=== PATIENT | female | born 1985 | race Caucasian/White ===

== ENCOUNTER 2021-03-13 10:03 | Emergency (ER) | payer MEDICARE, MEDICAID, SELFPAY ==
[2021-03-13 10:12] VITALS: BP 149/101; PULSE 109; RESP 18; TEMP 36.2; O2SAT 99
[2021-03-13 11:15] LABS: Basophils Percent Auto 0.5 % (0.2-1.2); Eosinophils Absolute Auto 0.1 K/mm3 (0-0.3); Eosinophils Percent Auto 1.7 % (0-4.4); Hematocrit 45.1 % (37.0-47.0); Hemoglobin 14.7 g/dL (12.0-15.0); Immature Granulocyte Absolute 0.01 K/mm3 (0.00-0.031); Immature Granulocyte Percent A 0.1 % (0-0.5); Lymphocytes Absolute Auto 1.54 K/mm3 (0.9-3.2); Lymphocytes Percent Auto 18.7 % (18.3-44.2); Mean Corpuscular HGB Conc 32.6 g/dl (32-36); Mean Corpuscular Hemoglobin 30.8 pg (26-34); Mean Corpuscular Volume 94.4 fl (80-100); Mean Platelet Volume 11.7 fl (7.4-10.4); Monocytes Absolute Auto 0.5 K/mm3 (0.1-0.6); Monocytes Percent Auto 5.5 % (2.6-8.5); Neutrophils Percent Auto 73.5 % (45.5-73.1); Platelet Count Result 329 k/mm3 (150-375); Red Blood Count 4.78 M/mm3 (4.2-5.4); Red Cell Distribution Width 14.6 % (11.5-14.5); White Blood Count 8.2 K/mm3 (4.5-10.0)
[2021-03-13 11:22] LABS: Add Urine Microscopic? YES; Appearance Urine Cloudy (Clear); Bacteria Urine 1+ /hpf; Bilirubin Urine Negative (Negative); Color Urine Yellow (Yellow); Glucose Urine UA Negative (Negative); Ketones Urine Negative (Negative); Leukocyte Esterase Ur 2+ LEU/UL (Negative); Mucus Urine Rare /lpf; Nitrate Urine Negative (Negative); Protein Urine 1+ mg/dL (Negative); RBC Urine 0-2 /hpf (0-2); Specific Grav Ur 1.025 (1.001-1.035); Squamous Epithelial Cell Urine Many /hpf (Few); Urobilinogen Urine Negative mg/dL (<2.0)
[2021-03-13 11:34] LABS: EDCOVIDSCREEN Negative (Negative)
[2021-03-13 11:35] LABS: Alanine Aminotransferase 20 U/L (4-35); Albumin Level 4.4 g/dL (3.5-5.1); Alkaline Phosphatase 71 U/L (38-126); Anion Gap 9 mmol/L (8-16); Aspartate Amino Transferase 25 U/L (14-36); Bilirubin,Total 0.3 mg/dL (0.2-1.3); Blood Urea Nitrogen 9 mg/dL (7-17); Calcium 9.3 mg/dL (8.4-10.2); Carbon Dioxide 24 mmol/L (22-30); Chloride 102 mmol/L (98-107); Estimated CRCL calculation 85 ml/min; Estimated Glomerular Filt Rate 57; Glucose 107 mg/dL (65-110); Potassium 3.9 mmol/L (3.4-5.0); Sodium 135 mmol/L (137-145)
[2021-03-13 11:38] LABS: Blood Urine Negative (Negative)
[2021-03-13 11:48] LABS: Amphetamine Screen Urine Negative (Negative); Barbiturate Screen Urine Negative (Negative); Benzodiazepines Screen Urine Negative (Negative); Cannabinoid Screen Urine Positive (Negative); Cocaine Screen Urine Negative (Negative); Methadone Screen Urine Negative (Negative); Opiate Screen Urine Negative (Negative); Phencyclidine Screen Urine Negative (Negative)
[2021-03-13 11:50] LABS: Ethanol < 10 mg/dL (<10)
--- NOTE | 2021-03-13 12:29 | ED.GENADULT ---
HPI - General Adult General Chief complaint: Psychiatric Symptoms Stated complaint: SI Time Seen by Provider: 03/13/21 10:06 Source: patient and RN notes reviewed Mode of arrival: ambulatory Limitations: no limitations History of Present Illness HPI narrative: Patient a 36-year-old female who presents to emergency department for evaluation of suicidal ideation noting that she is having thoughts of harming herself with increasing concern for ulisses with history of bipolar disorder. Patient denies any self-harm has longstanding history of mental illness. Patient has follow-up with her pillowcase sewer tomorrow is also followed by psychotherapy. Patient on arrival is tearful but cooperative and does not appear distressed denies any recent illness or other complaint Related Data Home Medications Medication Instructions Recorded Confirmed budesonide-formoterol [Symbicort] INHALATION 03/13/21 bupropion HCl mg PO 03/13/21 buspirone mg 03/13/21 03/13/21 cetirizine mg 03/13/21 gabapentin 03/13/21 ibuprofen 400 mg PO Q6H 03/13/21 lithium carbonate mg PO 03/13/21 melatonin 10 mg PO HS PRN 03/13/21 methylphenidate HCl 03/13/21 pantoprazole PO 03/13/21 tiotropium bromide [Spiriva INHALATION 03/13/21 Respimat] Allergies Allergy/AdvReac Type Severity Reaction Status Date / Time No Known Allergies Allergy Unverified 03/13/21 11:17 Review of Systems Review of Systems: All systems reviewed & are unremarkable except as noted in HPI and below PMFSH Past Medical History Medical History (Updated 03/13/21 @ 15:26 by Nicholas Garsia PA-C) Bipolar disorder Fibromyalgia Social History Social History (Updated 03/13/21 @ 12:30 by Nicholas Garsia PA-C) Tobacco type: e-cigarettes/vaping Substance use type: marijuana and painkillers Exam Narrative: GENERAL: Well-appearing, well-nourished, and in no acute distress. HEAD: Normocephalic, atraumatic. EYES: PERRLA and EOMI. ENT: Nares clear, no rhinorrhea or epistaxis. Mucous membranes moist. CHEST: Clear to auscultation. No respiratory distress. No wheezes rales or rhonchi HEART: Regular rate and rhythm. No murmur heard. Normal peripheral pulses. ABDOMEN: Soft, nontender, nondistended EXTREMITIES: Normal range of motion. No edema. SKIN: Warm, dry, no rash. NEURO: No focal deficits. Alert and oriented x3. Cranial nerves II through XII grossly intact PSYCH: Normal mood and affect. Course Course Emergency Course: Patient evaluated in the emergency department cleared by crisis and myself she will be checking into a crisis unit tonight at 6:00 her friends will take her she has felt appropriate for that she is hemodynamically stable no distress has agreed with this plan Vital Signs Vital signs: Vital Signs Temperature 97.1 F L 03/13/21 10:12 Pulse Rate 109 H 03/13/21 10:12 Respiratory Rate 18 03/13/21 10:12 Blood Pressure 149/101 H 03/13/21 10:12 Pulse Oximetry 99 03/13/21 10:12 Temperature 97.1 F L 03/13/21 10:12 Pulse Rate 109 H 03/13/21 10:12 Respiratory Rate 18 03/13/21 10:12 Blood Pressure 149/101 H 03/13/21 10:12 Pulse Oximetry 99 03/13/21 10:12 Medical Decision Making MDM Narrative Medical decision making narrative: Patient evaluated for SI and manic episodes will be placed in a crisis unit will be discharged home and will go with friends and family tonight this is felt appropriate patient agreeing with this plan myself and crisis agree Vital Signs Vital Signs: Vital Signs Temperature 97.1 F L 03/13/21 10:12 Pulse Rate 109 H 03/13/21 10:12 Respiratory Rate 18 03/13/21 10:12 Blood Pressure 149/101 H 03/13/21 10:12 Pulse Oximetry 99 03/13/21 10:12 Temperature 97.1 F L 03/13/21 10:12 Pulse Rate 109 H 03/13/21 10:12 Respiratory Rate 18 03/13/21 10:12 Blood Pressure 149/101 H 03/13/21 10:12 Pulse Oximetry 99 03/13/21 10:12 Lab Data Result diagrams: 03/13/21 10:59
--- NOTE | 2021-03-13 13:30 | PC.NURSE ---
Crisis nurse in with patient
--- NOTE | 2021-03-13 14:12 | PC.NURSE ---
Anne from [facility] called for an update. Relayed that patient is COVID negative after COVID exposure. Pt will be admitted to [place] at 6 PM
[2021-03-13 15:51] VITALS: BP 142/93; PULSE 93; RESP 18; TEMP 36.5; O2SAT 97
== END 2021-03-13 15:54 | disposition home or self-care (01) ==
PROVIDERS: Emergency Provider Emergency Medicine
DX: F31.9 Bipolar disorder, unspecified (principal); M79.7 Fibromyalgia; Z20.822 Contact with and (suspected) exposure to COVID-19; Z79.899 Other long term (current) drug therapy
CPT/HCPCS: 36415; 80053; 80307; 81001; 81025; 84443; 85025; 87086; 87088; 87426; 99284; C9803

== ENCOUNTER 2022-12-08 08:07 | Inpatient (IN) | payer MEDICARE, MEDICAID, SELFPAY ==
[2022-12-08] VITALS (29 sets, daily range): BP systolic 98–159; BP diastolic 38–125; PULSE 45–182; RESP 14–36; TEMP 36.4–37.1; O2SAT 97–100
--- NOTE | ~2022-12-08 | XR_ITS ---
EXAMINATION: XR chest 1V portable DATE: 12/10/2022 05:58 INDICATION: Respiratory failure. Pneumonia. TECHNIQUE: A single frontal view of the chest was obtained. COMPARISON: Chest single view 12/09/2022 FINDINGS: There are airspace opacities in the perihilar regions and at the left lung base. There is a small left pleural effusion. No pneumothorax. Cardiomegaly is noted. The endotracheal tube tip is 7 mm above the rizwan. The nasogastric tube tip is in the stomach. A right upper extremity peripherally inserted central venous catheter (PICC) is seen with tip in the right brachiocephalic vein. IMPRESSION: 1. Stable airspace opacities in the perihilar regions and at left lung base, consistent with pulmonar y edema versus pneumonia. 2. Stable small left pleural effusion. 3. Cardiomegaly. 4. Endotracheal tube tip 7 mm above the rizwan. Reviewed, dictated and finalized at location A. IMPRESSION: 1. Stable airspace opacities in the perihilar regions and at left lung base, co nsistent with pulmonary edema versus pneumonia. 2. Stable small left pleural effusion. 3. Cardiomegaly. 4. Endotracheal tube tip 7 mm above the rizwan.
--- NOTE | ~2022-12-08 | XR_ITS ---
EXAMINATION: XR chest ET placement DATE: 12/08/2022 08:41 INDICATION: Overdose. Intubation. TECHNIQUE: A single frontal view of the chest was obtained. COMPARISON: None. FINDINGS: The endotracheal tube tip is in the right mainstem bronchus. There are airspace opacities i n left perihilar region and left lower lung zone. No pleural effusion or pneumothorax. The heart size is normal. The nasogastric tube tip is beyond the inferior margin of the radiograph, but at least to the stomach. IMPRESSION: 1. Endotracheal tube tip in right mainstem bronchus. I called this result to Dr. Zavala. 2. Airspace opacities in left perihilar region and left lower lung zone, consistent with atelectasis versus pneumonia. Reviewed, dictated and finalized at location A. IMPRESSION: 1. Endotracheal tube tip in right mainstem bronchus. I called this result to Dr Amanda Zavala. 2. Airspace opacities in left perihilar region and left lower lung zone, consis tent with atelectasis versus pneumonia.
--- NOTE | ~2022-12-08 | XR_ITS ---
Portable chest x-ray Comparison: 12/11/2022 Clinical History: Respiratory failure Findings: Endotracheal tube, NG tube, and right-sided PICC line are in satisfactory positions. Small left pleural effusion is present with left basilar consolidation. There is mild right basilar atelec tatic change. Cardiomediastinal silhouette is stable. Bones and soft tissues are unremarkable. Impression: Small left pleural effusion with probable left basilar atelectasis. Correlate clinically for pneumoni a. Discoid right basilar atelectasis. Support tubes, as above. Reviewed, dictated and finalized at location . Impression: Small left pleural effusion with probable left basilar atelectasis. Correlate c linically for pneumonia. Discoid right basilar atelectasis. Support tubes, as above.
--- NOTE | ~2022-12-08 | XR_ITS ---
XR chest 1V portable 12/15/2022 05:54 Indication: Respiratory failure. Procedure: AP portable chest Comparison: Comparison to multiple prior studies sequentially, with oldest reviewed study dated 12/12. Findings: There is retrocardiac consolidation. There is right perihilar infiltrates. Endotracheal tub e tip 4.5 cm above the rizwan. NG tube in the stomach. No pneumothorax. Small left pleural effusion. No acute osseous abnormality. Impression: 1: Left basilar and right perihilar airspace consolidation which may represent pneumonia and/or atele ctasis. Reviewed, dictated and finalized at location A. Impression: 1: Left basilar and right perihilar airspace consolidation which may represent pneumonia and/or atelectasis.
--- NOTE | ~2022-12-08 | CT_ITS ---
EXAMINATION: CT brain wo con DATE: 12/08/2022 09:37 INDICATION: Altered mental status. TECHNIQUE: Computed tomography (CT) of the head was performed without intravenous contrast. The mA wa s adjusted according to patient size. Iterative reconstruction technique was employed. The dose-lengt h product was 605.33 mGy-cm. COMPARISON: None FINDINGS: There is no intracranial hemorrhage, acute infarction, or abnormal intracranial mass lesion . The ventricles are normal in size. The orbits are normal. There is mucosal thickening in the parana haley sinuses. The mastoid air cells are normal. IMPRESSION: 1. Normal brain. Reviewed, dictated and finalized at location A. IMPRESSION: 1. Normal brain.
--- NOTE | ~2022-12-08 | XR_ITS ---
EXAMINATION: XR chest PICC line DATE: 12/08/2022 19:54 INDICATION: Central line placement. TECHNIQUE: A single frontal view of the chest was obtained. COMPARISON: Chest single view at 7:17 PM FINDINGS: There are airspace opacities in left perihilar region and at left lung base. There is a sma ll left pleural effusion. No pneumothorax. Cardiomegaly is noted. The endotracheal tube tip is 1.9 cm above the rizwan. The nasogastric tube tip is beyond the inferior margin of the radiograph, but at l east to the stomach. A right upper extremity peripherally inserted central venous catheter (PICC) is seen with tip in the superior vena cava. IMPRESSION: 1. PICC tip in the superior vena cava. 2. Airspace opacities in left perihilar region and left lung base, consistent with atelectasis versus pneumonia. 3. Small left pleural effusion. 4. Cardiomegaly. Reviewed, dictated and finalized at location A. IMPRESSION: 1. PICC tip in the superior vena cava. 2. Airspace opacities in left perihilar region and left lung base, consistent w ith atelectasis versus pneumonia. 3. Small left pleural effusion. 4. Cardiomegaly.
--- NOTE | ~2022-12-08 | XR_ITS ---
Portable chest x-ray Comparison: 12/13/2022 Clinical History: Respiratory failure Findings: Endotracheal tube and NG tube and right-sided PICC line are in place. Small left pleural e ffusion and left basilar airspace disease again present. Right lung essentially clear. Cardiomediast inal silhouette is stable. Bones and soft tissues are unremarkable. Impression: Small left pleural effusion with left basilar atelectasis versus pneumonia. Support tubes, as above. Reviewed, dictated and finalized at location . Impression: Small left pleural effusion with left basilar atelectasis versus pneumonia. Support tubes, as above.
--- NOTE | ~2022-12-08 | XR_ITS ---
Portable chest x-ray Comparison: 12/12/2022 Clinical History: Respiratory failure Findings: Endotracheal tube, NG tube, and right-sided PICC line are in satisfactory positions. Small left pleural effusion is present. There is probable bibasilar atelectasis. Cardiomediastinal silhou ette is stable. Bones and soft tissues are unremarkable. Impression: Support tubes, as above. Small left pleural effusion with presumed bibasilar atelectasis. Correlate for left lower lobe pneumo rebekah. Reviewed, dictated and finalized at location M. Impression: Support tubes, as above. Small left pleural effusion with presumed bibasilar atelectasis. Correlate for left lower lobe pneumonia.
--- NOTE | ~2022-12-08 | US_ITS ---
Renal-Bladder ultrasound Clinical History: Acute renal sufficiency Technique: Real-time sonographic imaging of the kidneys and urinary bladder was performed. Findings: The right kidney measures 12.7 cm in length. Left kidney not visualized. No right hydroneph rosis or right renal stone seen. Right renal cortical echogenicity is within normal limits. No right renal mass lesion is identified. The urinary bladder is collapsed around a Gamez catheter, limiting evaluation. Impression: Unremarkable right kidney. Left kidney and bladder are not visualized. Reviewed, dictated and finalized at location M. Impression: Unremarkable right kidney. Left kidney and bladder are not visualized.
--- NOTE | ~2022-12-08 | XR_ITS ---
EXAMINATION: XR chest 1V portable DATE: 12/14/2022 21:53 INDICATION: Frothy sputum. TECHNIQUE: A single frontal view of the chest was obtained. COMPARISON: Chest single view at 5:10 AM FINDINGS: There are airspace opacities in the lower lung zones. There is a small left pleural effusio n. No pneumothorax. Cardiomegaly is noted. The endotracheal tube tip is 3.4 cm above the rizwan. The nasogastric tube tip is beyond the inferior margin of the radiograph, but at least to the stomach. IMPRESSION: 1. Airspace opacities in the lower lung zones with improvement on the left, consistent with atelectas is versus pneumonia. 2. Stable small left pleural effusion. 3. Cardiomegaly. Reviewed, dictated and finalized at location E. IMPRESSION: 1. Airspace opacities in the lower lung zones with improvement on the left, con sistent with atelectasis versus pneumonia. 2. Stable small left pleural effusion. 3. Cardiomegaly.
--- NOTE | ~2022-12-08 | XR_ITS ---
EXAMINATION: XR abdomen NG/feed tube insert DATE: 12/08/2022 08:41 INDICATION: Nasogastric tube placement. TECHNIQUE: A supine view of the abdomen was obtained. COMPARISON: None. FINDINGS: The lower abdomen is excluded. There are no dilated loops of bowel. The nasogastric tube ti p is in the stomach. IMPRESSION: 1. Nasogastric tube tip in the stomach. Reviewed, dictated and finalized at location A.
--- NOTE | ~2022-12-08 | XR_ITS ---
EXAMINATION: XR chest PICC line DATE: 12/08/2022 19:53 INDICATION: Central line placement. TECHNIQUE: A single frontal view of the chest was obtained. COMPARISON: Chest single view ON 8:24 AM FINDINGS: There are airspace opacities in left perihilar region and at left lung base. There is a sma ll left pleural effusion. No pneumothorax. Cardiomegaly is noted. The endotracheal tube tip is 2.1 cm above the rizwan. The nasogastric tube tip is beyond the inferior margin of the radiograph, but at l east to the stomach. A left upper extremity peripherally inserted central venous catheter (PICC) is s een with tip in the left brachiocephalic vein. IMPRESSION: 1. PICC tip in the left brachiocephalic vein. 2. Airspace opacities in left perihilar region and at left lung base, consistent with atelectasis hugh dipika pneumonia. 3. Small left pleural effusion. 4. Cardiomegaly. Reviewed, dictated and finalized at location A. IMPRESSION: 1. PICC tip in the left brachiocephalic vein. 2. Airspace opacities in left perihilar region and at left lung base, consisten t with atelectasis versus pneumonia. 3. Small left pleural effusion. 4. Cardiomegaly.
--- NOTE | ~2022-12-08 | XR_ITS ---
EXAMINATION: XR chest 1V portable DATE: 12/09/2022 06:07 INDICATION: Respiratory failure. TECHNIQUE: A single frontal view of the chest was obtained. COMPARISON: Chest single view 12/08/2022 FINDINGS: There are airspace opacities in the perihilar regions and left lung base. There is a small left pleural effusion. No pneumothorax. Cardiomegaly is noted. The endotracheal tube tip is 12 mm abo ve the rizwan. The nasogastric tube tip is beyond the inferior margin of the radiograph, but at least to the stomach. A right upper extremity peripherally inserted central venous catheter (PICC) is seen with tip in the right brachiocephalic vein. IMPRESSION: 1. Airspace opacities in the perihilar regions and at left lung base, consistent with pulmonary edema versus pneumonia. 2. Small left pleural effusion. 3. Cardiomegaly. Reviewed, dictated and finalized at location A. IMPRESSION: 1. Airspace opacities in the perihilar regions and at left lung base, consisten t with pulmonary edema versus pneumonia. 2. Small left pleural effusion. 3. Cardiomegaly.
--- NOTE | ~2022-12-08 | XR_ITS ---
Portable chest x-ray Comparison: 12/10/2022 Clinical History: Respiratory failure Findings: Endotracheal tube and NG tube are in satisfactory positions. Right-sided PICC line in plac e, tip at the proximal right subclavian vein or at the right brachiocephalic vein. There is probable small left pleural effusion. There is discoid right basilar atelectasis. Silhouette is stable. Bones and soft tissues are unremarkable. Impression: Small left pleural effusion with left basilar atelectatic change. Discoid right basilar atelectasis. Support tubes, as above. Consider mild advancement of right-sided PICC line tip into the SVC. Reviewed, dictated and finalized at location M. Impression: Small left pleural effusion with left basilar atelectatic change. Discoid right basilar atelectasis. Support tubes, as above. Consider mild advancement of right-sided PICC line tip into the SVC.
--- NOTE | 2022-12-08 08:05 | PC.NURSE ---
Per Neda RN at poison control: TCA- labs, ekg, house decorator, ABG/VBG. Consider possibility of wide QRS. Recommend bolus 1-2 mEq/kg of sodium bicarb and symptomatic supportive care. EDP made aware.
--- NOTE | 2022-12-08 08:11 | ECG_ITS ---
Measurements Intervals [place] Rate: 53 P: 40 FL: 176 QRS: 18 QRSD: 106 T: 9 QT: 465 QTc: 440 Interpretive Statements SINUS BRADYCARDIA BASELINE WANDER- AVR, AVL, AVF BORDERLINE ECG COMPARED TO ECG 02/28/2019 13:21:58 SINUS BRADYCARDIA NOW PRESENT Electronically Signed On 12-08-2022 15:54:59 CDT by Carlos Cordero D.O.
[2022-12-08 08:49] LABS: Alveolar/Arterial O2 Gradient 179.6 mmHg; Base Excess ABG -6.1 mEq/l (+/-2.0); Fractional Inspired Oxygen 100 %; HCO3 ABG 19.3 mEq/l (22.0-26.0); Oxygen Content ABG 21.6 %vol (16.0-22.0); Oxygen Saturation ABG 99.9 % (95.0-100.0); Oxyhemoglobin 98.3 % THb (90.0-100.0); PCO2 ABG 38.2 mmHg (35.0-45.0); PO2 ABG 495.2 mmHg (80.0-100.0); PO2 FiO2 Ratio Arterial Blood 4.95 %; Total Hemoglobin 14.7 g/dL (12.0-18.0); pH ABG 7.322 (7.350-7.450)
[2022-12-08] MEDS: SODIUM CHLORIDE 0.9% IV 1,000 ML 999 ML IV CONT (08:49)
[2022-12-08 08:51] LABS: Basophils Absolute Auto 0.1 K/mm3 (0.0-0.1); Basophils Percent Auto 0.5 % (0.2-1.2); Eosinophils Percent Auto 0.3 % (0-4.4); Hematocrit 46.1 % (37.0-47.0); Hemoglobin 14.5 g/dL (12.0-15.0); Immature Granulocyte Absolute 0.04 K/mm3 (0.00-0.031); Immature Granulocyte Percent A 0.4 % (0-0.5); Lymphocytes Absolute Auto 1.15 K/mm3 (0.9-3.2); Lymphocytes Percent Auto 11.6 % (18.3-44.2); Mean Corpuscular HGB Conc 31.5 g/dl (32-36); Mean Corpuscular Hemoglobin 30.7 pg (26-34); Mean Corpuscular Volume 97.5 fl (80-100); Mean Platelet Volume 11.3 fl (7.4-10.4); Monocytes Absolute Auto 0.4 K/mm3 (0.1-0.6); Monocytes Percent Auto 3.5 % (2.6-8.5); Neutrophils Absolute Auto 8.3 K/mm3 (1.3-6.7); Neutrophils Percent Auto 83.7 % (45.5-73.1); Platelet Count Result 312 k/mm3 (150-375); Red Blood Count 4.73 M/mm3 (4.2-5.4); Red Cell Distribution Width 15.5 % (11.5-14.5); White Blood Count 9.9 K/mm3 (4.5-10.0)
[2022-12-08 08:51] LABS: Device VENTILATOR; Modified Allen's Test Pass; Site Drawn RIGHT BRACHIAL
[2022-12-08] MEDS: FENTANYL 2,500MCG/NS250ML(*CRX 2,500 MCG/250 ML BAG IV CONT (08:51)
[2022-12-08] MEDS: MIDAZOLAM 100MG/NS 100ML(*CRX) 100 MG/100 ML BAG IV CONT (08:56)
[2022-12-08 08:58] LABS: Appearance Urine Clear (Clear); Bilirubin Urine Negative (Negative); Blood Urine Negative (Negative); Color Urine Yellow (Yellow); Glucose Urine UA Negative (Negative); Ketones Urine Negative (Negative); Leukocyte Esterase Ur Negative LEU/UL (Negative); Nitrate Urine Negative (Negative); Protein Urine Negative (Negative); Specific Grav Ur 1.012 (1.001-1.035); Urobilinogen Urine 0.2 mg/dL (<2.0)
[2022-12-08] MEDS: MIDAZOLAM HCL (*CRX) 2 MG/2 ML VIAL 1 MG IV PUSH (09:01)
[2022-12-08] MEDS: IPRATROPIUM BR 0.02% INH SOLN 0.5 MG/2.5 ML VIAL 1.5 MG INHALATION (09:01)
[2022-12-08] MEDS: LEVALBUTEROL NEB 1.25 MG/3 ML 2.5 MG INHALATION (09:01)
[2022-12-08 09:07] LABS: Partial Thromboplastin Time 24.2 SECONDS (22.3-36.8); Prothrombin Time 13.2 Seconds (11.1-14.7)
[2022-12-08 09:10] LABS: Amphetamine Screen Urine Negative (Negative); Barbiturate Screen Urine Negative (Negative); Benzodiazepines Screen Urine Negative (Negative); Cannabinoid Screen Urine Positive (Negative); Cocaine Screen Urine Negative (Negative); Methadone Screen Urine Negative (Negative); Opiate Screen Urine Negative (Negative); Phencyclidine Screen Urine Negative (Negative)
[2022-12-08 09:10] LABS: Acetaminophen < 10 ug/mL (10-30); Ethanol < 10 mg/dL (<10); Salicylate < 1.0 mg/dL (2-20)
[2022-12-08 09:17] LABS: Add Urine Microscopic? NO
[2022-12-08 09:17] LABS: Lithium 1.9 mmol/L (0.6-1.2)
--- NOTE | 2022-12-08 09:25 | PC.NURSE ---
medication bottles patient arrived with (3) placed in safe
--- NOTE | 2022-12-08 09:32 | PC.NURSE ---
Wilks*, correction from Neda, at poison control, made aware of critical lithium level (1.9). Recommending serum lithium levels q4h to establish baseline. Per Wilks, dialysis if needed, but not recommended until lithium level over 2.5. Informed of tizanidine and methylphenidate bottles that arrived with patient. Wilks stating that sodium bicarb is not recommended at this time. Wilks recommending to keep potassium and magnesium on high side of normal d/t patients risk of torsades. Also recommending fluids d/t potential for volume depletion. EDP made aware.
[2022-12-08 09:39] LABS: Alanine Aminotransferase 27 U/L (6-35); Albumin Level 4.1 g/dL (3.5-5.1); Alkaline Phosphatase 59 U/L (38-126); Anion Gap 7 mmol/L (8-16); Aspartate Amino Transferase 31 U/L (14-36); Bilirubin,Total 0.6 mg/dL (0.2-1.3); Blood Urea Nitrogen 8 mg/dL (7-17); Calcium 8.5 mg/dL (8.4-10.2); Carbon Dioxide 23 mmol/L (22-30); Chloride 107 mmol/L (98-107); Estimated CRCL calculation 109 ml/min; Estimated Glomerular Filt Rate > 60; Glucose 166 mg/dL (65-110); Magnesium 2.5 mg/dL (1.6-2.3); Potassium 4.3 mmol/L (3.4-5.0); Sodium 137 mmol/L (137-145)
--- NOTE | 2022-12-08 09:51 | ED.OVERDOSE ---
HPI - Overdose General Chief Complaint: Overdose Stated Complaint: unresponsive/possible OD History of Present Illness HPI Narrative: Patient is a 37-year-old female who presents ER with concerns for possible overdose. Patient found unresponsive in her room by her roommate. She had sonorous respirations. EMS reports equal pupils and minimally responsive. Patient then began to vomit. Patient was intubated by EMS for airway protection. Upon arrival here patient has minimal response to noxious stimuli. She is bradycardic. Initially EMS was concerned this may be a TCA overdose however it turns out that only bottles that she had with her at that time her methylphenidate and tizanidine. Outside records show patient takes lithium. Patient's roommate who is also her personal attendant through the [employer] program reports that she does have history of depression and has been using more medical marijuana than typical but has not endorsed any suicidal ideation recently. Related Data Home Medications Medication Instructions Recorded Confirmed baclofen 10 mg tablet 10 mg TID 12/08/22 12/08/22 budesonide-formoterol HFA 160 inhalation 12/08/22 mcg-4.5 mcg/actuation aerosol inhaler (Symbicort) buspirone 10 mg tablet 20 mg PO BID 12/08/22 12/08/22 desvenlafaxine succinate 100 mg 100 mg PO DAILY 12/08/22 12/08/22 tablet,extended release 24 hr (Pristiq) ergocalciferol (vitamin D2) 1,250 50,000 unit 12/08/22 mcg (50,000 unit) capsule hydroxyzine pamoate 50 mg capsule 100 mg PO HS PRN Anxiety 12/08/22 12/08/22 levothyroxine 75 mcg tablet 75 mcg PO DAILY 12/08/22 12/08/22 lithium carbonate 450 mg 450 mg PO BID 12/08/22 12/08/22 tablet,extended release lurasidone 80 mg tablet (Latuda) 80 mg PO DAILY 12/08/22 12/08/22 methylphenidate HCl 10 mg tablet 10 mg TID 12/08/22 12/08/22 ondansetron 8 mg disintegrating 8 mg PRN PRN Nausea 12/08/22 12/08/22 tablet pantoprazole 40 mg tablet,delayed 40 mg PO DAILY 12/08/22 12/08/22 release sumatriptan succinate 50 mg tablet 100 mg PO BID PRN Migraine Headache 12/08/22 12/08/22 tiotropium bromide 2.5 inhalation 12/08/22 mcg/actuation mist for inhalation (Spiriva Respimat) topiramate 50 mg tablet 100 mg PO HS 12/08/22 12/08/22 Allergies Allergy/AdvReac Type Severity Reaction Status Date / Time No Known Allergies Allergy Unverified 12/08/22 09:05 Review of Systems Review of Systems: ROS unobtainable: Yes unobtainable due to endotracheal tube PMFSH Past Medical History Medical History (Updated 12/08/22 @ 17:34 by Murali Garcia MD) Anxiety Asthma Attention deficit hyperactivity disorder Bipolar disorder Chronic pain syndrome Depression Kwaku-Danlos syndrome Fibromyalgia History of suicide attempt Morbid obesity Schizoaffective disorder Social History Social History (Updated 12/08/22 @ 13:59 by Jocelyn Gamboa PA-C) Social History: Emergency contact: Zeke Maharaj (friend) or Veronica Flores. Code status: Full code. Smoking status: Current every day smoker Tobacco type: e-cigarettes/vaping Substance use type: marijuana and painkillers Lack of Transportation: No Lack of Food: Never True Current Housing: I Have Housing Concerned About Future Housing: No Difficulty Paying Gas/Electric Bills: No Difficulty Paying for Meds: No Currently Unemployed: No Education: High School Diploma/GED Difficulty w/ Childcare or Family Care: No Spiritual care concerns: No Exam Narrative: GENERAL: Ill-appearing, morbidly obese, and in distress. HEAD: Normocephalic, atraumatic. EYES: PERRL and EOMI. ENT: Mucous membranes moist. NECK: Supple. CHEST: Mild wheezing. Patient requiring assisted ventilations and ventilator. HEART: Bradycardic and regular. Normal peripheral pulses. ABDOMEN: Soft, nontender, nondistended. EXTREMITIES: No deformity of the upper or lower extremities. Normal perfusion. SKIN: Warm, dry, no rash. NEURO: Intubated and s
[2022-12-08] MEDS: SODIUM CHLORIDE 0.9% IV 1,000 ML 200 ML IV CONT ×3 (10:13→23:25)
[2022-12-08] MEDS: SODIUM CHLORIDE 0.9% IV 3,000 ML 999 ML IV CONT (11:35)
--- NOTE | 2022-12-08 11:39 | WPDCNINT ---
Assessment and Plan Assessment and plan (1) Acute respiratory failure: Code(s): J96.00 - Acute respiratory failure, unspecified whether with hypoxia or hypercapnia Status: Acute Assessment and Plan: Patient possible overdose, altered mental status, shortness respirations, found unresponsive and was brought to the ED. -intubated in the ED on 12/08/2022 for airway protection -currently on CMV peep of 5, 40% FiO2 -chest x-ray and ABGs reviewed -patient has a history of asthma and is on home bronchodilators -will start Xopenex, Atrovent and Pulmicort -sedated with fentanyl and Versed infusion, maintain RASS of 0 to -1, daily spontaneous awakening trials and spontaneous breathing trial (2) Bradycardia: Code(s): R00.1 - Bradycardia, unspecified Status: Acute Assessment and Plan: Bradycardic likely due to tizanidine overdose, poison Control was notified -blood pressures have been stable -continue supportive care (3) Overdose: Code(s): T50.901A - Poisoning by unspecified drugs, medicaments and biological substances, accidental (unintentional), initial encounter Status: Acute Assessment and Plan: Likely lithium and tizanidine overdose -likely intentional as her room and stated that she has been depressed due to her pain from fibromyalgia -lithium level was 1.9 -recommended ER to give 3-4 L IV fluid bolus and increase maintenance IV fluids. -will give a total of 3 L IV fluids bolus and placed patient on maintenance IV fluids at 150 mL/hour -monitor urine output closely -BMP and lithium levels every 4 hours -nephrology has been consulted and on board and agreeable with IV fluids for now (4) Elevated lithium level: Code(s): R79.89 - Other specified abnormal findings of blood chemistry Status: Acute Assessment and Plan: As above -poison control was notified from the ER (5) Altered mental status: Code(s): R41.82 - Altered mental status, unspecified Status: Acute Assessment and Plan: Likely related to medicine overdose -currently sedated intubated (6) Hypothyroidism: Code(s): E03.9 - Hypothyroidism, unspecified Status: Acute Assessment and Plan: Will continue levothyroxine (7) Fibromyalgia: Code(s): M79.7 - Fibromyalgia Status: Acute Assessment and Plan: Currently on fentanyl for pain control Plan DVT prophylaxis: Lovenox Stress ulcer prophylaxis: Protonix Nutrition: NPO Code Status: Full code Critical Care Time Spent: 49 minutes Discussed with patient's roommate and updated with patient's condition and plan of care. He did tell me that she has been recently more depressed due to her of pain from fibromyalgia. He was unaware of what medications she may have overdosed on. I answered all questions Due to a high probability of clinically significant, life threatening deterioration, the patient required my highest level of preparedness to intervene emergently and I personally spent this critical care time directly and personally managing the patient. This critical care time included obtaining a history; examining the patient; pulse oximetry; ordering and review of studies; arranging urgent treatment with development of a management plan; evaluation of patient's response to treatment; frequent reassessment; and discussions with other providers. It was exclusive of separately billable procedures and treating other patients and teaching time. Please see Assessment and Plan section and the rest of the note for further information on patient assessment and treatment This dictation may have been done utilizing a voice recognition system. Attempts have been made to correct errors. However, there may be uncorrected grammatical, spelling, and recognitions errors present. Edger Hand Consult Note Consult date: 12/08/22 Reason for consult: Altered mental status likely overdose unknown medications likely tizanidine,
--- NOTE | 2022-12-08 12:16 | PM.CNNEP ---
Assessment and Plan Assessment and plan (1) [place] toxicity: Code(s): T56.891A - Toxic effect of other metals, accidental (unintentional), initial encounter Status: Acute Assessment and Plan: elevated lithium level noted on admission given normal renal function at baseline, young age as well as lack of any significant renal risk factors (i.e. HTN, DM, heart disease, CHF...etc), would continue aggressive IVF resuscitation first - discussed with Dr. Ayala if her lithium level continues to rise or worsen, will consider intervention in the form of renal replacement therapy/dialysis. I will continue to follow the patient with you while she remains hospitalized make further condition to hospital course Thank you for allowing me to participate in care of this patient. History of Present Illness Reason for Consult Consult date: 12/08/22 Reason for consult: Other ([place] toxicity) Chief Complaint Chief complaint: [place] toxicity, possible overdose, altered menta History of Present Illness Narrative: Most of the information that I have obtained is review of the electronic medical record as well as discussion with the ER physician and purchasing expeditor as the patient is currently intubated and unable to provide any history. The patient is a 37-year-old female with a past medical history as outlined below who presented to [facility] Emergency room via EMS after being found unresponsive. EMS was called to the patient's home after she was found unresponsive with a concern that this may be a possible overdose. Her roommate apparently found her unresponsive earlier this morning. She was laying face down with abnormal respirations. Given her history of psychiatric issues there was some concern that she may have possibly overdosed on 1 of her home medications, possibly to tizanidine and and/or [place]. Her roommate called 911 and she was brought to the emergency room for further assessment. On arrival to the emergency room she was otherwise hemodynamically stable but is seemed clear that she was unable to protect her airway. She was intubated placed on mechanical ventilation. Since intubation and even prior to her arrival, she has been noted be relatively bradycardic as well. Routine blood tests including a CBC, CMP, and urinalysis were all unremarkable but her urine drug screen was positive for marijuana. Her lithium level was checked and was elevated at 1.9. CT scan of the brain showed no acute findings and her chest x-ray was otherwise unremarkable with the possible concern for atelectasis versus pneumonia. She was initiated on IV fluid resuscitation and this was continued upon her arrival to the intensive care unit as well. Renal consultation was requested due to her [place] toxicity. Given the concern that there is not a clear picture of whether not she overdosed on lithium or is this just a manifestation of her current current [place] medications, the possibility of renal replacement therapy/dialysis as a treatment for her elevated lithium level was brought up. As noted by her labs, her renal function is well within normal limits and she does not have any other significant risk factors for renal insufficiency that would probably hamper clearance of the [place] with conservative therapy. She otherwise appears to be making fairly good urine output and she has no evidence of any other critical electrolyte abnormalities, volume overload, or metabolic acidosis. Currently, at the time my visit, she is intubated/sedated and on mechanical ventilation. Review of Systems Review of Systems: As per HPI (limited by current status). [facility] Past Medical History Medical History (Updated 12/08/22 @ 17:34 by Murali Garcia MD) Anxiety Asthma Attention deficit hyperactivity disorder Bipolar disorder Chronic pain syndrome Depression Kwaku-Danlos syndrome Fibromyalgia History of suicide attempt Morbid obesity S
[2022-12-08] MEDS: LEVALBUTEROL NEB 1.25 MG/3 ML INHALATION ×2 (12:52→20:48)
[2022-12-08] MEDS: IPRATROPIUM BR 0.02% INH SOLN 0.5 MG/2.5 ML VIAL INHALATION ×2 (12:53→20:47)
[2022-12-08 12:54] LABS: Lithium 0.6 mmol/L (0.6-1.2)
--- NOTE | 2022-12-08 13:26 | PM.IMHP ---
H&P: HPI History of Present Illness Date/Time: 12/08/22 14:00 Chief Complaint: Unresponsive, possible overdose. Narrative: This is a 37-year-old female with bipolar disorder, depression, anxiety, history of suicide attempt, asthma, fibromyalgia, chronic pain syndrome, Kwaku-Danlos syndrome, obesity, and hypothyroidism who presented to the emergency department via EMS from home for evaluation after she was found unresponsive with concerns for a possible overdose. She is sedated and intubated on mechanical ventilation and is unable to provide history. Thus all of the following history is obtained from her chart. This morning her roommate found her unresponsive and lying face down with sonorous respirations. He had concerns that she may have overdosed on some of her home medications, possibly tizanidine and lithium, but to my knowledge there has not been much evidence to substantiate that claim. Roommate called 911 and she was brought to the ER where she was intubated for airway protection. She has been persistently bradycardic since arrival with stable blood pressures. CMP, CBC, and UA were unremarkable. Urine drug screen was positive for cannabinoids. Alcohol, salicylate, and acetaminophen levels were undetectable. [place] level was supratherapeutic at 1.9 (0.6 - 1.2). Brain CT showed no acute findings. Chest x-ray shows airspace opacities in left perihilar region and left lower lung zone consistent with atelectasis versus pneumonia. She was given a 4 L bolus of normal saline and she has been admitted to the ICU for further care. At the time my evaluation she is sedated with fentanyl and midazolam and she is not arousable or following commands. Poison Control was contacted by the emergency department and we are following their recommendations. Review of Systems Review of Systems: Unable to obtain due to clinical condition. [facility] Past Medical History Medical History Anxiety Asthma Attention deficit hyperactivity disorder Bipolar disorder Chronic pain syndrome Depression Kwaku-Danlos syndrome Fibromyalgia History of suicide attempt Morbid obesity Schizoaffective disorder Surgical History Surgical History (Updated 12/08/22 @ 20:32 by Jocelyn Gamboa PA-C) Surgical history unknown Social History Social History Social History: Emergency contact: Zeke Josepht (friend) or Veronica Flores. Code status: Full code. Smoking status: Current every day smoker Tobacco type: e-cigarettes/vaping Substance use type: marijuana and painkillers Lack of Transportation: No Lack of Food: Never True Current Housing: I Have Housing Concerned About Future Housing: No Difficulty Paying Gas/Electric Bills: No Difficulty Paying for Meds: No Currently Unemployed: No Education: High School Diploma/GED Difficulty w/ Childcare or Family Care: No Spiritual care concerns: No Meds Home Medications and Allergies Home Medications Medication Instructions Recorded Confirmed Type baclofen 10 mg tablet 10 mg TID 12/08/22 12/08/22 History budesonide-formoterol HFA 160 2 inh inhalation DAILY 12/08/22 12/08/22 History mcg-4.5 mcg/actuation aerosol inhaler (Symbicort) buspirone 10 mg tablet 20 mg PO BID 12/08/22 12/08/22 History desvenlafaxine succinate 100 mg 100 mg PO DAILY 12/08/22 12/08/22 History tablet,extended release 24 hr (Pristiq) ergocalciferol (vitamin D2) 1,250 50,000 unit PO WEEKLY 12/08/22 12/08/22 History mcg (50,000 unit) capsule hydroxyzine pamoate 50 mg capsule 100 mg PO HS PRN Anxiety 12/08/22 12/08/22 History levothyroxine 75 mcg tablet 75 mcg PO DAILY 12/08/22 12/08/22 History lithium carbonate 450 mg 450 mg PO BID 12/08/22 12/08/22 History tablet,extended release lurasidone 80 mg tablet (Latuda) 80 mg PO DAILY 12/08/22 12/08/22 History methylphenidate HCl 10 mg tablet 1
[2022-12-08 15:39] LABS: Arterial Blood Gas PEEP 5 cmH2O; Arterial Blood Gas Tidal Volume 450 ml; Arterial Blood Gas Vent Mode CMV; Arterial Blood Gas Ventilator rate 22 /MIN
[2022-12-08 17:28] LABS: Lithium 0.4 mmol/L (0.6-1.2)
[2022-12-08 17:29] LABS: Anion Gap 6 mmol/L (8-16); Blood Urea Nitrogen 7 mg/dL (7-17); Calcium 7.5 mg/dL (8.4-10.2); Carbon Dioxide 22 mmol/L (22-30); Chloride 112 mmol/L (98-107); Estimated CRCL calculation 121 ml/min; Estimated Glomerular Filt Rate > 60; Glucose 102 mg/dL (65-110); Sodium 140 mmol/L (137-145)
[2022-12-08] MEDS: ATROPINE SULFATE 1 MG/10 ML SYRINGE IV PUSH (18:10)
[2022-12-08] MEDS: MIDAZOLAM HCL (*CRX) 2 MG/2 ML VIAL (18:18)
[2022-12-08] MEDS: LORazepam INJ (*CRX) 2 MG/ML VIAL 4 MG (19:02)
--- NOTE | 2022-12-08 19:58 | ADMGEN ---
This patient, Kelli Flores, was admitted to Intensive Care Unit-5 at 1157. Patient/family oriented to hospital policies and general routines including ID bracelet, bed and alarms, visiting hours, pain management, procedures, bathroom and other care routines, personal items, smoking policy, room service/diet, and visiting hours. Information on how to activate the Rapid Response Team has been discussed. Patient/Family are encouraged to report perceived risks to care and to ask questions if they do not understand what they are told or what they should do.
[2022-12-08] MEDS: LIDOCAINE HCL 1% PF INJ 5 ML VIAL INFILTRATE (20:00)
[2022-12-08] MEDS: BUDESONIDE RESPULE NEB 0.5 MG/2 ML AMP INHALATION (20:47)
[2022-12-08] MEDS: CENTRAL LINE FLUSH 10 ML IV PUSH (21:06)
[2022-12-08 22:04] LABS: Anion Gap 7 mmol/L (8-16); Blood Urea Nitrogen 6 mg/dL (7-17); Calcium 7.4 mg/dL (8.4-10.2); Carbon Dioxide 21 mmol/L (22-30); Chloride 113 mmol/L (98-107); Estimated CRCL calculation 158 ml/min; Estimated Glomerular Filt Rate > 60; Glucose 116 mg/dL (65-110); Sodium 141 mmol/L (137-145)
[2022-12-08 22:11] LABS: Lithium 0.4 mmol/L (0.6-1.2)
[2022-12-09] VITALS (50 sets, daily range): BP systolic 85–103; BP diastolic 47–67; PULSE 57–105; RESP 15–28; TEMP 37.1–37.6; O2SAT 97–100; BMI 54.1
[2022-12-09 00:43] LABS: Glucose Point of Care 132 mg/dl (65-105)
[2022-12-09 01:30] LABS: Anion Gap 5 mmol/L (8-16); Blood Urea Nitrogen 6 mg/dL (7-17); Calcium 7.6 mg/dL (8.4-10.2); Carbon Dioxide 22 mmol/L (22-30); Chloride 113 mmol/L (98-107); Estimated CRCL calculation 147 ml/min; Estimated Glomerular Filt Rate > 60; Glucose 133 mg/dL (65-110); Potassium 3.9 mmol/L (3.4-5.0); Sodium 140 mmol/L (137-145)
[2022-12-09 01:45] LABS: Lithium 0.3 mmol/L (0.6-1.2)
[2022-12-09] MEDS: IPRATROPIUM BR 0.02% INH SOLN 0.5 MG/2.5 ML VIAL INHALATION ×4 (02:56→20:30)
[2022-12-09] MEDS: LEVALBUTEROL NEB 1.25 MG/3 ML INHALATION ×4 (02:56→20:30)
[2022-12-09] MEDS: MIDAZOLAM 100MG/NS 100ML(*CRX) 100 MG/100 ML BAG 10 MG IV CONT (03:05)
[2022-12-09] MEDS: SODIUM CHLORIDE 0.9% IV 1,000 ML 200 ML IV CONT (04:12)
[2022-12-09] MEDS: CENTRAL LINE FLUSH 10 ML IV PUSH ×3 (04:12→20:57)
[2022-12-09 05:16] LABS: Basophils Percent Auto 0.1 % (0.2-1.2); Hematocrit 39.6 % (37.0-47.0); Hemoglobin 12.4 g/dL (12.0-15.0); Immature Granulocyte Absolute 0.11 K/mm3 (0.00-0.031); Immature Granulocyte Percent A 0.5 % (0-0.5); Immature Platelet Fraction Pct 9.1 % (0.9-11.2); Lymphocytes Absolute Auto 0.75 K/mm3 (0.9-3.2); Lymphocytes Percent Auto 3.7 % (18.3-44.2); Mean Corpuscular HGB Conc 31.3 g/dl (32-36); Mean Corpuscular Hemoglobin 30.3 pg (26-34); Mean Corpuscular Volume 96.8 fl (80-100); Monocytes Absolute Auto 0.9 K/mm3 (0.1-0.6); Monocytes Percent Auto 4.6 % (2.6-8.5); Neutrophils Absolute Auto 18.4 K/mm3 (1.3-6.7); Neutrophils Percent Auto 91.1 % (45.5-73.1); Red Blood Count 4.09 M/mm3 (4.2-5.4); White Blood Count 20.3 K/mm3 (4.5-10.0)
[2022-12-09 05:23] LABS: Alanine Aminotransferase 23 U/L (6-35); Albumin Level 3.2 g/dL (3.5-5.1); Alkaline Phosphatase 54 U/L (38-126); Anion Gap 4 mmol/L (8-16); Aspartate Amino Transferase 21 U/L (14-36); Bilirubin,Total 0.7 mg/dL (0.2-1.3); Blood Urea Nitrogen 6 mg/dL (7-17); Calcium 7.5 mg/dL (8.4-10.2); Carbon Dioxide 23 mmol/L (22-30); Chloride 113 mmol/L (98-107); Estimated CRCL calculation 130 ml/min; Estimated Glomerular Filt Rate > 60; Glucose 143 mg/dL (65-110); Potassium 4.1 mmol/L (3.4-5.0); Sodium 140 mmol/L (137-145)
[2022-12-09 05:30] LABS: Alveolar/Arterial O2 Gradient 226.6 mmHg; Base Excess ABG -4.1 mEq/l (+/-2.0); Carboxyhemoglobin 0.3 % THb (0-2.0); Fractional Inspired Oxygen 60 %; HCO3 ABG 22.1 mEq/l (22.0-26.0); Methemoglobin ABG 0.5 %THb (0-1.5); Oxygen Content ABG 23.4 %vol (16.0-22.0); Oxygen Saturation ABG 98.8 % (95.0-100.0); Oxyhemoglobin 97.7 % THb (90.0-100.0); PCO2 ABG 43.9 mmHg (35.0-45.0); PO2 ABG 152.9 mmHg (80.0-100.0); PO2 FiO2 Ratio Arterial Blood 2.55 %; Reduced Hemoglobin 1.5 %THb (0-5.0); Total Hemoglobin 16.9 g/dL (12.0-18.0); pH ABG 7.319 (7.350-7.450)
[2022-12-09 05:35] LABS: Arterial Blood Gas Vent Mode CMV; Arterial Blood Gas Ventilator rate 16 /MIN; Device VENTILATOR; Modified Allen's Test Pass; Site Drawn RIGHT RADIAL
[2022-12-09 05:36] LABS: Arterial Blood Gas PEEP 5 cmH2O; Arterial Blood Gas Tidal Volume 450 ml
[2022-12-09 06:04] LABS: Lithium 0.3 mmol/L (0.6-1.2)
[2022-12-09] MEDS: LEVOTHYROXINE SODIUM 75 MCG TABLET PO (06:12)
[2022-12-09] MEDS: BUDESONIDE RESPULE NEB 0.5 MG/2 ML AMP INHALATION ×2 (07:55→20:30)
[2022-12-09] MEDS: cefTRIAXone 2 GM/NS 100 ML 2 GM/100 ML BAG IVPB (08:30)
[2022-12-09] MEDS: ENOXAPARIN 40 MG/0.4 ML SYRINGE SUB-Q (08:31)
[2022-12-09] MEDS: PANTOPRAZOLE SODIUM IV 40 MG VIAL IV PUSH (08:32)
--- NOTE | 2022-12-09 08:39 | WPDINTPN ---
Progress Note: A&P Assessment and Plan (1) Acute respiratory failure: Code(s): J96.00 - Acute respiratory failure, unspecified whether with hypoxia or hypercapnia Status: Acute Assessment and Plan: Patient possible overdose, altered mental status, shortness respirations, found unresponsive and was brought to the ED. -intubated in the ED on 12/08/2022 for airway protection -currently on CMV peep of 5, 60% FiO2, ABGs reviewed, will wean FiO2 -chest x-ray this morning: Airspace opacities in the perihilar regions and at left lung base, consistent with pulmonary edema versus pneumonia. Small left pleural effusion. Cardiomegaly. -patient has a history of asthma and is on home bronchodilators -continue Xopenex, Atrovent and Pulmicort -sedated with fentanyl and Versed infusion, maintain RASS of 0 to -1, daily spontaneous awakening trials and spontaneous breathing trial (2) Bradycardia: Code(s): R00.1 - Bradycardia, unspecified Status: Acute Assessment and Plan: Bradycardic likely due to tizanidine overdose, poison Control was notified -blood pressures have been stable -continue supportive care -bradycardia has resolved (3) Overdose: Code(s): T50.901A - Poisoning by unspecified drugs, medicaments and biological substances, accidental (unintentional), initial encounter Status: Acute Assessment and Plan: Likely lithium and tizanidine overdose -likely intentional as her room mate stated that she has been depressed due to her pain from fibromyalgia -initial lithium level was 1.9 (0.6-1.2) -patient was given 3 L IV fluid bolus in all -continue maintenance IV fluids -monitor urine output closely -lithium levels have normalized, creatinine is normal -appreciate nephrology following the patient (4) Elevated lithium level: Code(s): R79.89 - Other specified abnormal findings of blood chemistry Status: Acute Assessment and Plan: [place] levels back to normal -poison control was notified from the ER (5) Altered mental status: Code(s): R41.82 - Altered mental status, unspecified Status: Acute Assessment and Plan: Likely related to medicine overdose -currently sedated intubated (6) Hypothyroidism: Code(s): E03.9 - Hypothyroidism, unspecified Status: Acute Assessment and Plan: continue levothyroxine (7) Fibromyalgia: Code(s): M79.7 - Fibromyalgia Status: Chronic Assessment and Plan: Currently on fentanyl for pain control Plan DVT prophylaxis: Lovenox Stress ulcer prophylaxis: Protonix Nutrition: Will start tube Code Status: Full code Critical Care Time Spent: 34 minutes 12/09: Discussed with patient's mother and updated with patient's condition and plan of care. I answered all questions Discussed with patient's roommate and updated with patient's condition and plan of care. He did tell me that she has been recently more depressed due to her of pain from fibromyalgia. He was unaware of what medications she may have overdosed on. I answered all questions Due to a high probability of clinically significant, life threatening deterioration, the patient required my highest level of preparedness to intervene emergently and I personally spent this critical care time directly and personally managing the patient. This critical care time included obtaining a history; examining the patient; pulse oximetry; ordering and review of studies; arranging urgent treatment with development of a management plan; evaluation of patient's response to treatment; frequent reassessment; and discussions with other providers. It was exclusive of separately billable procedures and treating other patients and teaching time. Please see Assessment and Plan section and the rest of the note for further information on patient assessment and treatment This dictation may have been done utilizing a voice recognition system. Attempts have been ma
[2022-12-09 09:27] LABS: Lithium 0.3 mmol/L (0.6-1.2)
[2022-12-09 09:30] LABS: Anion Gap 3 mmol/L (8-16); Blood Urea Nitrogen 5 mg/dL (7-17); Calcium 5.4 mg/dL (8.4-10.2); Carbon Dioxide 18 mmol/L (22-30); Chloride 121 mmol/L (98-107); Estimated CRCL calculation 200 ml/min; Estimated Glomerular Filt Rate > 60; Glucose 108 mg/dL (65-110); Potassium 2.9 mmol/L (3.4-5.0); Sodium 142 mmol/L (137-145)
--- NOTE | 2022-12-09 10:05 | PC.NURSE ---
Spoke with Efe from poison control who requested update on pts status. Informed of vital signs and most recent labs. Efe reports there are no new recommendations at this time.
[2022-12-09] MEDS: PIPERACILLN/TAZ 3.375GM/NS50ML 3.375 GM/50 ML BAG IVPB ×3 (10:27→21:01)
[2022-12-09] MEDS: POTASSIUM CHLORIDE 20 MEQ PACKET (FOR LIQUID) 40 MEQ FEED TUBE ×2 (10:43→21:20)
[2022-12-09] MEDS: KCL 40 MEQ/WATER 100 ML 100 ML 25 ML IVPB (11:15)
[2022-12-09] MEDS: SODIUM CHLORIDE 0.9% IV 1,000 ML 100 ML IV CONT ×2 (11:15→20:57)
[2022-12-09 13:41] LABS: Anion Gap 5 mmol/L (8-16); Blood Urea Nitrogen 6 mg/dL (7-17); Calcium 7.5 mg/dL (8.4-10.2); Carbon Dioxide 23 mmol/L (22-30); Chloride 110 mmol/L (98-107); Estimated CRCL calculation 130 ml/min; Estimated Glomerular Filt Rate > 60; Glucose 116 mg/dL (65-110); Potassium 4.1 mmol/L (3.4-5.0); Sodium 138 mmol/L (137-145)
[2022-12-09 13:45] LABS: Lithium 0.2 mmol/L (0.6-1.2)
--- NOTE | 2022-12-09 14:26 | PM.IMPN ---
Progress Note: A&P Assessment and Plan (1) Altered mental status: Code(s): R41.82 - Altered mental status, unspecified Status: Acute Assessment and Plan: Patient was found prone and essentially unresponsive by her roommate. It is suspected that she may have intentionally overdosed on home medication, possibly tizanidine and lithium but tight have not been told that there was any evidence to substantiate this claim as of yet. Brain CT did not show any acute findings. Urine drug screen was positive for cannabinoids. Initial lithium level was elevated at 1.9 (0.6 - 1.2) but that has normalized with aggressive IV fluids. Ethyl alcohol level was undetectable. TSH was normal. CMP and CBC were essentially unremarkable. No evidence to suggest infection at this time. ABG did not show hypoxia or hypercapnia. Currently intubated reassess once recovered (2) Overdose: Code(s): T50.901A - Poisoning by unspecified drugs, medicaments and biological substances, accidental (unintentional), initial encounter Status: Acute Assessment and Plan: SUSPECTED overdose. She has a history of depression and suicide attempts. Roommate is concerned she may have overdosed on lithium and tizanidine and states that she has been depressed recently due to chronic pain from her fibromyalgia. She was aggressively hydrated in the ED and her lithium level as normalized. Poison Control was consulted and we are following their recommendations. Nephrology has been consulted on the chance that she may need dialysis which is looking less likely at this time. Monitor BMP and lithium levels q.4 hours. (3) Acute respiratory failure: Code(s): J96.00 - Acute respiratory failure, unspecified whether with hypoxia or hypercapnia Status: Acute Assessment and Plan: Patient presented to the emergency department essentially unresponsive with altered mental status from possible overdose. She was intubated on arrival for airway protection. She has a history of asthma and has been started on bronchodilators. Currently sedated with fentanyl and midazolam infusions per rig welder. Presenting ABG reviewed. Chest x-ray with airspace opacity in the perihilar regions and at left lung base pulmonary edema versus pneumonia small left pleural effusion. Broad-spectrum antibiotics started for aspiration pneumonia suspected with vancomycin Zosyn and azithromycin On mechanical ventilation per rig welder (4) Bradycardia: Code(s): R00.1 - Bradycardia, unspecified Status: Acute Assessment and Plan: She has been persistently bradycardic in the 40s to 50s but is otherwise hemodynamically stable. May be related to tizanidine and/or lithium overdose. TSH within normal limits. Continue supportive care (5) Elevated lithium level: Code(s): R79.89 - Other specified abnormal findings of blood chemistry Status: Acute Assessment and Plan: Plan is as detailed above. Poison Control was notified by the ED. (6) Hypothyroidism: Code(s): E03.9 - Hypothyroidism, unspecified Status: Acute Assessment and Plan: Continue levothyroxine, TSH within normal limits. (7) Psychiatric illness: Code(s): F99 - Mental disorder, not otherwise specified Status: Acute Assessment and Plan: Patient has a reported history of schizoaffective disorder, bipolar disorder, depression, anxiety, and ADHD. Her home medications are currently on hold given concerns for overdose. Once medically cleared she will need a crisis consult. (8) Chronic pain syndrome: Code(s): G89.4 - Chronic pain syndrome Status: Acute Assessment and Plan: According to the roommate she has chronic pain related to fibromyalgia for which she is reportedly on fentanyl at home. Plan Nutrition: Tube feeds Code status full code DVT prophylaxis: Lovenox Subjective Date/time seen: 12/09/22 14:26 Interval hi
[2022-12-09 20:58] LABS: Anion Gap 4 mmol/L (8-16); Blood Urea Nitrogen 6 mg/dL (7-17); Calcium 7.8 mg/dL (8.4-10.2); Carbon Dioxide 22 mmol/L (22-30); Chloride 111 mmol/L (98-107); Estimated CRCL calculation 147 ml/min; Estimated Glomerular Filt Rate > 60; Glucose 139 mg/dL (65-110); Magnesium 2.1 mg/dL (1.6-2.3); Potassium 3.8 mmol/L (3.4-5.0); Sodium 137 mmol/L (137-145)
[2022-12-09] MEDS: FENTANYL 2,500MCG/NS250ML(*CRX 2,500 MCG/250 ML BAG 7.5 MCG IV CONT (23:03)
[2022-12-09 23:40] LABS: Glucose Point of Care 141 mg/dl (65-105)
[2022-12-10] VITALS (33 sets, daily range): BP systolic 86–111; BP diastolic 52–67; PULSE 53–110; RESP 16–28; TEMP 37.1–37.6; O2SAT 92–99; BMI 55.2
[2022-12-10] MEDS: IPRATROPIUM BR 0.02% INH SOLN 0.5 MG/2.5 ML VIAL INHALATION ×4 (02:15→19:23)
[2022-12-10] MEDS: LEVALBUTEROL NEB 1.25 MG/3 ML INHALATION ×4 (02:15→19:23)
[2022-12-10] MEDS: PIPERACILLN/TAZ 3.375GM/NS50ML 3.375 GM/50 ML BAG IVPB ×4 (03:33→22:07)
[2022-12-10] MEDS: CENTRAL LINE FLUSH 10 ML IV PUSH ×3 (04:34→22:08)
[2022-12-10 04:58] LABS: Basophils Percent Auto 0.2 % (0.2-1.2); Eosinophils Absolute Auto 0.1 K/mm3 (0-0.3); Eosinophils Percent Auto 0.5 % (0-4.4); Hematocrit 34.9 % (37.0-47.0); Hemoglobin 10.9 g/dL (12.0-15.0); Immature Granulocyte Absolute 0.05 K/mm3 (0.00-0.031); Immature Granulocyte Percent A 0.4 % (0-0.5); Lymphocytes Percent Auto 7.8 % (18.3-44.2); Mean Corpuscular HGB Conc 31.2 g/dl (32-36); Mean Corpuscular Hemoglobin 30.8 pg (26-34); Mean Corpuscular Volume 98.6 fl (80-100); Mean Platelet Volume 11.5 fl (7.4-10.4); Monocytes Absolute Auto 0.8 K/mm3 (0.1-0.6); Monocytes Percent Auto 5.9 % (2.6-8.5); Neutrophils Percent Auto 85.2 % (45.5-73.1); Platelet Count Result 244 k/mm3 (150-375); Red Blood Count 3.54 M/mm3 (4.2-5.4); Red Cell Distribution Width 16.3 % (11.5-14.5); White Blood Count 12.9 K/mm3 (4.5-10.0)
[2022-12-10 05:09] LABS: Lactic Acid Reflex 1.4 mmol/L (0.7-2.0)
[2022-12-10 05:26] LABS: Alanine Aminotransferase 20 U/L (6-35); Albumin Level 2.9 g/dL (3.5-5.1); Alkaline Phosphatase 64 U/L (38-126); Anion Gap 5 mmol/L (8-16); Aspartate Amino Transferase 26 U/L (14-36); Bilirubin,Total 0.5 mg/dL (0.2-1.3); Blood Urea Nitrogen 6 mg/dL (7-17); Calcium 7.9 mg/dL (8.4-10.2); Carbon Dioxide 21 mmol/L (22-30); Chloride 111 mmol/L (98-107); Creatine Kinase 80 U/L (30-135); Estimated CRCL calculation 147 ml/min; Estimated Glomerular Filt Rate > 60; Glucose 154 mg/dL (65-110); Lipase 21 U/L (23-300); Magnesium 2.2 mg/dL (1.6-2.3); Phosphorus 1.9 mg/dL (2.5-4.5); Potassium 3.5 mmol/L (3.4-5.0); Sodium 137 mmol/L (137-145)
[2022-12-10 05:40] LABS: CRP 19.1 mg/dL (<1.0)
[2022-12-10 05:43] LABS: Alveolar/Arterial O2 Gradient 89.7 mmHg; Arterial Blood Gas PEEP 5 cmH2O; Arterial Blood Gas Vent Mode CMV; Arterial Blood Gas Ventilator rate 16 /MIN; Base Excess ABG -6.3 mEq/l (+/-2.0); Carboxyhemoglobin 0.9 % THb (0-2.0); Device VENTILATOR; Fractional Inspired Oxygen 30 %; HCO3 ABG 19.7 mEq/l (22.0-26.0); Methemoglobin ABG 0.3 %THb (0-1.5); Modified Allen's Test Pass; Oxygen Content ABG 18.7 %vol (16.0-22.0); Oxygen Saturation ABG 94.2 % (95.0-100.0); Oxyhemoglobin 93.6 % THb (90.0-100.0); PCO2 ABG 40.4 mmHg (35.0-45.0); PO2 ABG 76.7 mmHg (80.0-100.0); PO2 FiO2 Ratio Arterial Blood 2.56 %; Reduced Hemoglobin 5.2 %THb (0-5.0); Site Drawn RIGHT RADIAL; Total Hemoglobin 14.2 g/dL (12.0-18.0); pH ABG 7.305 (7.350-7.450)
[2022-12-10 05:44] LABS: Arterial Blood Gas Tidal Volume 450 ml
[2022-12-10] MEDS: LEVOTHYROXINE SODIUM 75 MCG TABLET PO (06:51)
[2022-12-10] MEDS: MIDAZOLAM 100MG/NS 100ML(*CRX) 100 MG/100 ML BAG 10 MG IV CONT (06:54)
[2022-12-10] MEDS: SODIUM CHLORIDE 0.9% IV 1,000 ML 100 ML IV CONT (07:25)
[2022-12-10] MEDS: FUROSEMIDE INJ 40 MG/4 ML VIAL IV PUSH (08:43)
[2022-12-10] MEDS: POTASSIUM/PHOSPHORUS/SODIUM 1.5 GM PACKET 1 PACKET PO (08:43)
[2022-12-10] MEDS: POTASSIUM CHLORIDE 20 MEQ PACKET (FOR LIQUID) 40 MEQ PO (08:43)
[2022-12-10] MEDS: PANTOPRAZOLE SODIUM IV 40 MG VIAL IV PUSH (09:10)
[2022-12-10] MEDS: ENOXAPARIN 40 MG/0.4 ML SYRINGE SUB-Q (09:10)
--- NOTE | 2022-12-10 09:24 | WPDINTPN ---
Progress Note: A&P Assessment and Plan (1) Acute respiratory failure: Code(s): J96.00 - Acute respiratory failure, unspecified whether with hypoxia or hypercapnia Status: Acute Assessment and Plan: Patient possible overdose, altered mental status, shortness respirations, found unresponsive and was brought to the ED. -intubated in the ED on 12/08/2022 for airway protection -currently on CMV peep of 5, 30% FiO2, ABGs reviewed, ventilator adjusted -chest x-ray this morning: Stable airspace opacities in the perihilar regions and at left lung base, consistent with pulmonary edema versus pneumonia.. Stable small left pleural effusion.. Cardiomegaly.. Endotracheal tube tip 7 mm above the rizwan. ETT has been withdrawn 1.5 cm -patient has a history of asthma and is on home bronchodilators -continue Xopenex, Atrovent and Pulmicort -sedated with fentanyl and Versed infusion, maintain RASS of 0 to -1, daily spontaneous awakening trials and spontaneous breathing trial (2) Pneumonia: Code(s): J18.9 - Pneumonia, unspecified organism Status: Acute Assessment and Plan: Chest x-ray shows stable opacities, be related to aspiration pneumonia as patient was found down unresponsive with sonorous respirations. -leukocytosis, chest x-ray findings, patient started azithromycin, Zosyn and vancomycin (12/09) -cultures have been obtained, will deescalate antibiotic once culture results reported (3) Bradycardia: Code(s): R00.1 - Bradycardia, unspecified Status: Acute Assessment and Plan: Bradycardic likely due to tizanidine overdose, poison Control was notified -blood pressures have been stable -continue supportive care -patient consist used to have episodes of bradycardia with seem to correlate with the patient either bearing down or with suctioning. -episodes of short-lived -cardiology has been consulted -patient has pacer pads and atropine at bedside (4) Overdose: Code(s): T50.901A - Poisoning by unspecified drugs, medicaments and biological substances, accidental (unintentional), initial encounter Status: Acute Assessment and Plan: Likely lithium and tizanidine overdose -likely intentional as her room mate stated that she has been depressed due to her pain from fibromyalgia -initial lithium level was 1.9 (0.6-1.2) -patient was given 3 L IV fluid bolus in all -discontinue IV fluids -Lasix IV x1 today -lithium levels have normalized, creatinine is normal -appreciate nephrology following the patient (5) Elevated lithium level: Code(s): R79.89 - Other specified abnormal findings of blood chemistry Status: Acute Assessment and Plan: [place] levels back to normal -poison control was notified from the ER -12/09/2022: Poison control had called and had no new recommendations (6) Altered mental status: Code(s): R41.82 - Altered mental status, unspecified Status: Acute Assessment and Plan: Likely related to medicine overdose -currently sedated and intubated (7) Hypothyroidism: Code(s): E03.9 - Hypothyroidism, unspecified Status: Acute Assessment and Plan: continue levothyroxine (8) Fibromyalgia: Code(s): M79.7 - Fibromyalgia Status: Chronic Assessment and Plan: Currently on fentanyl for pain control -added home baclofen (9) Schizoaffective disorder: Code(s): F25.9 - Schizoaffective disorder, unspecified Status: Acute Assessment and Plan: Will restart risperidone, venlafaxine, Topiramate and Latuda (10) Bipolar disorder: Code(s): F31.9 - Bipolar disorder, unspecified Status: Chronic Assessment and Plan: Continue meds as above -hold lithium and methylphenidate Plan DVT prophylaxis: Lovenox Stress ulcer prophylaxis: Protonix Nutrition: Tolerating tube feeds Code Status: Full code Critical Care Time Spent: 33 minutes 12/10/2022: Discussed with patient's m
[2022-12-10] MEDS: LORazepam INJ (*CRX) 2 MG/ML VIAL IV PUSH (09:31)
[2022-12-10] MEDS: BUDESONIDE RESPULE NEB 0.5 MG/2 ML AMP INHALATION ×2 (09:59→19:23)
--- NOTE | 2022-12-10 11:16 | PC.NURSE ---
Spoke with Bolivar from poison control. Updated him on pts bradycardia, pauses on telemetry, and increased agitation. Bolivar reports that TCAs can induce a widened QRS complex, acidosis, and serotonin syndrome. Poison control usually will continue to follow pt until symtoms begin resolving, extubated, and hemodynamically stable. Call back number is [phone]
[2022-12-10] MEDS: BACLOFEN 10 MG TABLET FEED TUBE ×2 (12:14→16:29)
[2022-12-10] MEDS: busPIRone HCL 10 MG TABLET 20 MG PO ×2 (12:14→16:30)
--- NOTE | 2022-12-10 13:13 | PM.CNCAR ---
Assessment and Plan Assessment and plan (1) Bradycardia: Code(s): R00.1 - Bradycardia, unspecified Status: Acute Plan This is a 37-year-old woman without prior cardiac history who is intubated in the ICU presumably from a drug overdose she has a number of psychotropic medications available her and has been seen to have pauses in the ICU which appear to be vagally mediated since they occur when she is coughing or being suction. At this point these pauses do not require any further specific treatment(pacemaker). I would recommend having atropine at bedside and also giving her some atropine intravenously when in extubation attempt is going to be made. At this point I do not think there is need for other more specific cardiac recommendations Koby Buenrostro MD [facility] History of Present Illness History of Present Illness Consult date/time: 12/10/22 13:13 Reason For Visit: [place] toxicity, possible overdose, altered menta Narrative: This is a 37-year-old woman I am seeing at the request of the pasta maker/hospitalist because of bradycardic pauses that have been noticed while she is in the hospital ICU. The patient is unknown to me prior to this encounter she is intubated on sedation and mechanical ventilation and the entire history therefore is obtained according to chart review. She does not have any prior history of cardiac problems but she does has been extensive psychiatric history as well as a history of Kwaku Danlos syndrome. According to the record she was found unresponsive in the prone position in her home and unresponsive. She was brought to the emergency room where she was felt to be a drug overdose patient/probably lithium overdose she was intubated to protect her airway and admitted to the ICU. She was been admitted since Saturday of this past weekend and remains on the ventilator. The nurses have noticed that when the patient is coughing fighting against the ventilator or being suctioned she will have be having a bradycardic pauses very suspicious for a vasovagal response. The chart does not indicate any history of syncopal episode otherwise and again no other history of cardiac problems her 12 lead electrocardiogram on admission to the hospital was essentially unremarkable. It should also be mentioned the patient is massively obese with a BMI of 55. Review of Systems Review of Systems: ROS unobtainable: Yes unobtainable due to endotracheal tube PMFSH Past Medical History Medical History (Updated 12/10/22 @ 09:30 by Aubrie Ayala MD) Anxiety Asthma Attention deficit hyperactivity disorder Bipolar disorder Chronic pain syndrome Depression Kwaku-Danlos syndrome Fibromyalgia History of suicide attempt Morbid obesity Schizoaffective disorder Surgical History Surgical History (Updated 12/08/22 @ 20:32 by Jocelyn Gamboa PA-C) Surgical history unknown Social History Social History Social History: Emergency contact: Zeke Maharaj (friend) or Veronica Flores. Code status: Full code. Smoking status: Current every day smoker Tobacco type: e-cigarettes/vaping Substance use type: marijuana and painkillers Lack of Transportation: No Lack of Food: Never True Current Housing: I Have Housing Concerned About Future Housing: No Difficulty Paying Gas/Electric Bills: No Difficulty Paying for Meds: No Currently Unemployed: No Education: High School Diploma/GED Difficulty w/ Childcare or Family Care: No Spiritual care concerns: No Meds Home Medications and Allergies Home Medications Medication Instructions Recorded Confirmed Type baclofen 10 mg tablet 10 mg TID 12/08/22 12/08/22 History budesonide-formoterol HFA 160 2 inh inhalation DAILY 12/08/22 12/08/22 History mcg-4.5 mcg/actuation aerosol inhaler (Symbicort) buspirone 10 mg tablet 20 mg PO BID 12/08/22 12/08/22 History desvenlafaxine succina
--- NOTE | 2022-12-10 13:41 | PHAR ---
Addendum entered by Mellisa Mei, PharmD 12/10/22 13:42: PRISTIQ 100MG TABLETS Original Note: HOME MEDICATIONS VERIFIED BY PHARMACY: LATUDA 80MG TABLETS TAKE 1 TABLET PO ONCE DAILY IN THE EVENING WITH A FULL MEAL DESVENLAFAXINE ER TABETS TAKE 1 TABLET PO ONCE DAILY
[2022-12-10] MEDS: FENTANYL 2,500MCG/NS250ML(*CRX 2,500 MCG/250 ML BAG 20 MCG IV CONT (15:18)
[2022-12-10] MEDS: MIDAZOLAM 100MG/NS 100ML(*CRX) 100 MG/100 ML BAG 12 MG IV CONT (15:19)
[2022-12-10] MEDS: TOPIRAMATE 100 MG TABLET PO (20:44)
[2022-12-10] MEDS: MINERAL OIL/WHITE PETROLATUM OINTMENT 1 APPLIC EACH EYE (22:07)
[2022-12-10 23:23] LABS: Glucose Point of Care 149 mg/dl (65-105)
[2022-12-11] VITALS (52 sets, daily range): BP systolic 100–122; BP diastolic 61–75; PULSE 56–106; RESP 15–26; TEMP 36.7–37; O2SAT 89–100
[2022-12-11] MEDS: MIDAZOLAM 100MG/NS 100ML(*CRX) 100 MG/100 ML BAG 12 MG IV CONT (00:08)
[2022-12-11] MEDS: LEVALBUTEROL NEB 1.25 MG/3 ML INHALATION ×4 (02:10→20:42)
[2022-12-11] MEDS: IPRATROPIUM BR 0.02% INH SOLN 0.5 MG/2.5 ML VIAL INHALATION ×4 (02:10→20:41)
[2022-12-11] MEDS: FENTANYL 2,500MCG/NS250ML(*CRX 2,500 MCG/250 ML BAG 20 MCG IV CONT (03:49)
[2022-12-11] MEDS: PIPERACILLN/TAZ 3.375GM/NS50ML 3.375 GM/50 ML BAG IVPB ×3 (04:43→16:53)
[2022-12-11] MEDS: CENTRAL LINE FLUSH 10 ML IV PUSH ×2 (04:44→13:10)
[2022-12-11 05:42] LABS: Alveolar/Arterial O2 Gradient 84.1 mmHg; Base Excess ABG -0.9 mEq/l (+/-2.0); Carboxyhemoglobin 0.4 % THb (0-2.0); Fractional Inspired Oxygen 30 %; HCO3 ABG 24.2 mEq/l (22.0-26.0); Methemoglobin ABG 0.2 %THb (0-1.5); Oxygen Content ABG 17.4 %vol (16.0-22.0); Oxygen Saturation ABG 95.8 % (95.0-100.0); Oxyhemoglobin 95.1 % THb (90.0-100.0); PCO2 ABG 41.4 mmHg (35.0-45.0); PO2 ABG 81.2 mmHg (80.0-100.0); PO2 FiO2 Ratio Arterial Blood 2.71 %; Reduced Hemoglobin 4.3 %THb (0-5.0); pH ABG 7.384 (7.350-7.450)
[2022-12-11 05:43] LABS: Arterial Blood Gas Ventilator rate 18 /MIN; Device VENTILATOR; Modified Allen's Test Pass; Site Drawn RIGHT RADIAL
[2022-12-11 05:44] LABS: Arterial Blood Gas PEEP 5 cmH2O; Arterial Blood Gas Tidal Volume 450 ml; Arterial Blood Gas Vent Mode CMV
[2022-12-11 05:54] LABS: Basophils Percent Auto 0.4 % (0.2-1.2); Eosinophils Absolute Auto 0.1 K/mm3 (0-0.3); Eosinophils Percent Auto 1.2 % (0-4.4); Hematocrit 35.6 % (37.0-47.0); Hemoglobin 11.2 g/dL (12.0-15.0); Immature Granulocyte Absolute 0.06 K/mm3 (0.00-0.031); Immature Granulocyte Percent A 0.5 % (0-0.5); Lymphocytes Absolute Auto 1.49 K/mm3 (0.9-3.2); Lymphocytes Percent Auto 13.3 % (18.3-44.2); Mean Corpuscular HGB Conc 31.5 g/dl (32-36); Mean Corpuscular Hemoglobin 30.4 pg (26-34); Mean Corpuscular Volume 96.7 fl (80-100); Mean Platelet Volume 11.4 fl (7.4-10.4); Monocytes Absolute Auto 0.7 K/mm3 (0.1-0.6); Neutrophils Absolute Auto 8.8 K/mm3 (1.3-6.7); Neutrophils Percent Auto 78.6 % (45.5-73.1); Platelet Count Result 253 k/mm3 (150-375); Red Blood Count 3.68 M/mm3 (4.2-5.4); Red Cell Distribution Width 15.8 % (11.5-14.5); White Blood Count 11.2 K/mm3 (4.5-10.0)
[2022-12-11 06:13] LABS: Alanine Aminotransferase 19 U/L (6-35); Albumin Level 3.2 g/dL (3.5-5.1); Alkaline Phosphatase 60 U/L (38-126); Anion Gap 7 mmol/L (8-16); Aspartate Amino Transferase 21 U/L (14-36); Bilirubin,Total 0.5 mg/dL (0.2-1.3); Blood Urea Nitrogen 11 mg/dL (7-17); Calcium 8.3 mg/dL (8.4-10.2); Carbon Dioxide 24 mmol/L (22-30); Chloride 104 mmol/L (98-107); Estimated CRCL calculation 98 ml/min; Estimated Glomerular Filt Rate 57; Glucose 159 mg/dL (65-110); Magnesium 2.3 mg/dL (1.6-2.3); Phosphorus 2.5 mg/dL (2.5-4.5); Potassium 3.3 mmol/L (3.4-5.0); Sodium 135 mmol/L (137-145)
[2022-12-11] MEDS: LEVOTHYROXINE SODIUM 75 MCG TABLET PO (06:42)
[2022-12-11] MEDS: BUDESONIDE RESPULE NEB 0.5 MG/2 ML AMP INHALATION ×2 (07:00→20:41)
[2022-12-11] MEDS: MIDAZOLAM 100MG/NS 100ML(*CRX) 100 MG/100 ML BAG 10 MG IV CONT (08:45)
[2022-12-11] MEDS: POTASSIUM CHLORIDE 20 MEQ PACKET (FOR LIQUID) 40 MEQ FEED TUBE (08:57)
[2022-12-11] MEDS: ENOXAPARIN 40 MG/0.4 ML SYRINGE SUB-Q (08:58)
[2022-12-11] MEDS: MINERAL OIL/WHITE PETROLATUM OINTMENT 1 APPLIC EACH EYE ×2 (08:58→21:00)
[2022-12-11] MEDS: PANTOPRAZOLE SODIUM IV 40 MG VIAL IV PUSH (08:58)
[2022-12-11] MEDS: busPIRone HCL 10 MG TABLET 20 MG PO ×2 (08:59→16:55)
--- NOTE | 2022-12-11 09:42 | WPDINTPN ---
Progress Note: A&P Assessment and Plan (1) Acute respiratory failure: Code(s): J96.00 - Acute respiratory failure, unspecified whether with hypoxia or hypercapnia Status: Acute Assessment and Plan: Patient possible overdose, altered mental status, shortness respirations, found unresponsive and was brought to the ED. -intubated in the ED on 12/08/2022 for airway protection -currently on CMV peep of 5, 30% FiO2, ABGs reviewed, ventilator adjusted -increase PEEP to 8 -chest x-ray reviewed -weaning will depend on mental status improvement -patient has a history of asthma and is on home bronchodilators -continue Xopenex, Atrovent and Pulmicort (2) Pneumonia: Code(s): J18.9 - Pneumonia, unspecified organism Status: Acute Assessment and Plan: Chest x-ray shows stable opacities, be related to aspiration pneumonia as patient was found down unresponsive with sonorous respirations. -leukocytosis, chest x-ray findings, patient started azithromycin, Zosyn and vancomycin (12/09) -cultures have been obtained and negative till now -discontinue vancomycin (3) Bradycardia: Code(s): R00.1 - Bradycardia, unspecified Status: Acute Assessment and Plan: Bradycardic likely due to tizanidine overdose, sedation and vagal stimulation -blood pressures have been stable -continue supportive care -patient consist used to have episodes of bradycardia with seem to correlate with the patient either bearing down or with suctioning. Lowering of sedation also leads to episodes of bradycardia. Will try to slowly transition patient to propofol to allow better and quicker sedation vacation for exam as long as her heart rate tolerates -episodes are short-lived with spontaneous recovery -cardiology following -patient has pacer pads and atropine at bedside (4) Overdose: Code(s): T50.901A - Poisoning by unspecified drugs, medicaments and biological substances, accidental (unintentional), initial encounter Status: Acute Assessment and Plan: Likely lithium and tizanidine overdose -likely intentional as her room mate stated that she has been depressed due to her pain from fibromyalgia -initial lithium level was 1.9 (0.6-1.2) but resolved with IV fluids -lithium levels have normalized, creatinine is normal -appreciate nephrology following the patient (5) Elevated lithium level: Code(s): R79.89 - Other specified abnormal findings of blood chemistry Status: Acute Assessment and Plan: [place] levels have decreased to subtherapeutic levels -poison control was notified from the ER -12/09/2022: Poison control had called and had no new recommendations (6) Altered mental status: Code(s): R41.82 - Altered mental status, unspecified Status: Acute Assessment and Plan: Likely related to medicine overdose -currently sedated and intubated -will try to wean down sedation today (7) Hypothyroidism: Code(s): E03.9 - Hypothyroidism, unspecified Status: Acute Assessment and Plan: continue levothyroxine (8) Fibromyalgia: Code(s): M79.7 - Fibromyalgia Status: Chronic Assessment and Plan: Currently on fentanyl for pain control (9) Schizoaffective disorder: Code(s): F25.9 - Schizoaffective disorder, unspecified Status: Acute Assessment and Plan: Currently on desvenlafaxine, Topiramate and Latuda (10) Bipolar disorder: Code(s): F31.9 - Bipolar disorder, unspecified Status: Chronic Assessment and Plan: Continue meds as above -hold lithium and methylphenidate Plan DVT prophylaxis: Lovenox Stress ulcer prophylaxis: Protonix Nutrition: Tolerating tube feeds Code Status: Full code 12/11/2022: Discussed with patient's mother at bedside and updated with condition plan of care. I answered all questions. She stated the patient had expressed her multiple times prior to this event that she did not wan
--- NOTE | 2022-12-11 10:37 | PCNFU ---
Nutrition Follow-Up Complete: Inadequate Oral Intake as related to mechanical ventilation as evidenced by NPO. Goal:Meet estimated nutritional needs. Patient is progressing towards goal. We will continue current goal. Pt current nutrition is Vital AF 1.2 at 60 ml/hr. Last recorded weight is 156.1 kg. Bowel Motility:No BM reported. Labs Reviewed:Glu 154, K 3.3,Na 135, Glu 159,Cr 1.10 Meds Noted:Fentanyl, Versed, Protonix, Zosyn Skin: WNL Additional Notes: Patient remains on mechanical vent and tube tube feedings of Vital AF 1.2 at 60 ml/hr and tolerating per nursing. Tube feedings providing 1584 kcals/99 gms protein/1071 ml water. Flush 30 ml q 4 hours. Tube feedings meeting 85% caloric needs and 100% protein needs. Agree with diet orders at this time. Will monitor in ICU rounds and reassess every Saturday and Saturday.
[2022-12-11] MEDS: PROPOFOL IV EMULSION 100 ML 9.37 MG IV CONT (10:50)
--- NOTE | 2022-12-11 10:55 | PC.NURSE ---
[place] from poison control called for pt update. Informed that pt will plan to switch sedation from Versed to Propofol with plans to wean as tolerated. No further recommendations at this time.
[2022-12-11 11:57] LABS: Triglycerides 165 mg/dL (<150)
[2022-12-11] MEDS: PROPOFOL IV EMULSION 100 ML 32.78 MG IV CONT ×4 (13:34→20:58)
[2022-12-11] MEDS: FENTANYL 2,500MCG/NS250ML(*CRX 2,500 MCG/250 ML BAG 17.5 MCG IV CONT (18:20)
[2022-12-11] MEDS: TOPIRAMATE 100 MG TABLET PO (21:01)
[2022-12-12] VITALS (37 sets, daily range): BP systolic 106–163; BP diastolic 54–97; PULSE 51–124; RESP 18–33; TEMP 36.8–37.2; O2SAT 93–100
[2022-12-12] MEDS: LEVALBUTEROL NEB 1.25 MG/3 ML INHALATION ×4 (02:55→21:00)
--- NOTE | 2022-12-12 06:06 | PC.NURSE ---
[facility] downtime forms utilized.
[2022-12-12] MEDS: LEVOTHYROXINE SODIUM 75 MCG TABLET PO (06:17)
[2022-12-12 06:31] LABS: Alveolar/Arterial O2 Gradient 91.4 mmHg; Base Excess ABG -4.2 mEq/l (+/-2.0); HCO3 ABG 20.8 mEq/l (22.0-26.0); Oxygen Content ABG 95.2 %vol (16.0-22.0); Oxygen Saturation ABG 95.2 % (95.0-100.0); Oxyhemoglobin 94.8 % THb (90.0-100.0); PCO2 ABG 37.6 mmHg (35.0-45.0); PO2 ABG 78.3 mmHg (80.0-100.0); Total Hemoglobin 11.7 g/dL (12.0-18.0)
[2022-12-12 06:32] LABS: Carboxyhemoglobin 0.3 % THb (0-2.0); Device VENTILATOR; Fractional Inspired Oxygen 30 %; Methemoglobin ABG 0.3 %THb (0-1.5); Modified Allen's Test Pass; PO2 FiO2 Ratio Arterial Blood 2.61 %; Reduced Hemoglobin 4.6 %THb (0-5.0); Site Drawn RIGHT RADIAL
[2022-12-12 06:33] LABS: Arterial Blood Gas PEEP 8 cmH2O; Arterial Blood Gas Tidal Volume 450 ml; Arterial Blood Gas Vent Mode CMV; Arterial Blood Gas Ventilator rate 18 /MIN
[2022-12-12] MEDS: PROPOFOL IV EMULSION 100 ML 18.73 MG IV CONT (06:38)
[2022-12-12] MEDS: IPRATROPIUM BR 0.02% INH SOLN 0.5 MG/2.5 ML VIAL INHALATION ×4 (07:14→21:00)
[2022-12-12] MEDS: BUDESONIDE RESPULE NEB 0.5 MG/2 ML AMP INHALATION ×2 (07:40→21:00)
[2022-12-12 07:48] LABS: Alanine Aminotransferase 20 U/L (6-35); Albumin Level 3.1 g/dL (3.5-5.1); Alkaline Phosphatase 58 U/L (38-126); Anion Gap 6 mmol/L (8-16); Aspartate Amino Transferase 26 U/L (14-36); Bilirubin,Total 0.4 mg/dL (0.2-1.3); Blood Urea Nitrogen 24 mg/dL (7-17); Calcium 8.5 mg/dL (8.4-10.2); Carbon Dioxide 25 mmol/L (22-30); Chloride 103 mmol/L (98-107); Estimated CRCL calculation 37 ml/min; Estimated Glomerular Filt Rate 18; Glucose 123 mg/dL (65-110); Magnesium 2.6 mg/dL (1.6-2.3); Phosphorus 6.1 mg/dL (2.5-4.5); Potassium 3.7 mmol/L (3.4-5.0); Sodium 134 mmol/L (137-145)
[2022-12-12] MEDS: ENOXAPARIN 40 MG/0.4 ML SYRINGE SUB-Q (08:49)
[2022-12-12] MEDS: MINERAL OIL/WHITE PETROLATUM OINTMENT 1 APPLIC EACH EYE ×2 (08:49→20:12)
[2022-12-12] MEDS: PANTOPRAZOLE SODIUM IV 40 MG VIAL IV PUSH (08:50)
[2022-12-12] MEDS: busPIRone HCL 10 MG TABLET 20 MG PO ×2 (08:50→17:25)
[2022-12-12] MEDS: LACTATED RINGERS 1,000 ML 100 ML IV CONT ×2 (08:54→20:12)
--- NOTE | 2022-12-12 09:26 | WPDINTPN ---
Progress Note: A&P Assessment and Plan (1) Acute respiratory failure: Code(s): J96.00 - Acute respiratory failure, unspecified whether with hypoxia or hypercapnia Status: Acute Assessment and Plan: Patient possible overdose, altered mental status, shortness respirations, found unresponsive and was brought to the ED. -intubated in the ED on 12/08/2022 for airway protection -currently on CMV peep of 8, 30% FiO2, ABGs reviewed, ventilator adjusted -chest x-ray reviewed -weaning will depend on mental status improvement -patient has a history of asthma and is on home bronchodilators -continue Xopenex, Atrovent and Pulmicort (2) Pneumonia: Code(s): J18.9 - Pneumonia, unspecified organism Status: Acute Assessment and Plan: Chest x-ray shows stable opacities, be related to aspiration pneumonia as patient was found down unresponsive with sonorous respirations. -leukocytosis, chest x-ray findings, patient started azithromycin, Zosyn and vancomycin (12/09) -cultures have been obtained and negative till now -discontinue vancomycin (3) Bradycardia: Code(s): R00.1 - Bradycardia, unspecified Status: Acute Assessment and Plan: Bradycardic likely due to tizanidine overdose, sedation and vagal stimulation -blood pressures have been stable -continue supportive care -patient consist used to have episodes of bradycardia with seem to correlate with the patient either bearing down or with suctioning. Lowering of sedation also leads to episodes of bradycardia. Will try to slowly transition patient to propofol to allow better and quicker sedation vacation for exam as long as her heart rate tolerates -episodes are short-lived with spontaneous recovery -cardiology following -patient has pacer pads and atropine at bedside (4) Overdose: Code(s): T50.901A - Poisoning by unspecified drugs, medicaments and biological substances, accidental (unintentional), initial encounter Status: Acute Assessment and Plan: Likely lithium and tizanidine overdose -likely intentional as her room mate stated that she has been depressed due to her pain from fibromyalgia -initial lithium level was 1.9 (0.6-1.2) but resolved with IV fluids -lithium levels have normalized, creatinine is normal -appreciate nephrology following the patient (5) Elevated lithium level: Code(s): R79.89 - Other specified abnormal findings of blood chemistry Status: Acute Assessment and Plan: [place] levels have decreased to subtherapeutic levels -poison control was notified from the ER -12/09/2022: Poison control had called and had no new recommendations (6) Altered mental status: Code(s): R41.82 - Altered mental status, unspecified Status: Acute Assessment and Plan: Likely related to medicine overdose -currently sedated and intubated -will try to wean down sedation today (7) Hypothyroidism: Code(s): E03.9 - Hypothyroidism, unspecified Status: Acute Assessment and Plan: continue levothyroxine (8) Fibromyalgia: Code(s): M79.7 - Fibromyalgia Status: Chronic Assessment and Plan: Currently on fentanyl for pain control which I am trying to wean down (9) Schizoaffective disorder: Code(s): F25.9 - Schizoaffective disorder, unspecified Status: Acute Assessment and Plan: desvenlafaxine cannot be crushed and given through the tube continue Topiramate and Latuda (10) Bipolar disorder: Code(s): F31.9 - Bipolar disorder, unspecified Status: Chronic Assessment and Plan: Continue meds as above -hold lithium and methylphenidate (11) Encephalopathy: Code(s): G93.40 - Encephalopathy, unspecified Status: Acute Assessment and Plan: Patient has had a multifactorial encephalopathy she has a psychiatric illness and has been on multiple psychiatric medications, she presented with overdose of unknown vacation
[2022-12-12 10:13] LABS: Basophils Absolute Auto 0.1 K/mm3 (0.0-0.1); Basophils Percent Auto 0.6 % (0.2-1.2); Eosinophils Absolute Auto 0.2 K/mm3 (0-0.3); Eosinophils Percent Auto 1.9 % (0-4.4); Hematocrit 33.4 % (37.0-47.0); Hemoglobin 10.6 g/dL (12.0-15.0); Immature Granulocyte Absolute 0.04 K/mm3 (0.00-0.031); Immature Granulocyte Percent A 0.5 % (0-0.5); Lymphocytes Absolute Auto 1.05 K/mm3 (0.9-3.2); Lymphocytes Percent Auto 13.2 % (18.3-44.2); Mean Corpuscular HGB Conc 31.7 g/dl (32-36); Mean Corpuscular Hemoglobin 30.8 pg (26-34); Mean Corpuscular Volume 97.1 fl (80-100); Monocytes Absolute Auto 0.8 K/mm3 (0.1-0.6); Monocytes Percent Auto 10.3 % (2.6-8.5); Neutrophils Absolute Auto 5.9 K/mm3 (1.3-6.7); Neutrophils Percent Auto 73.5 % (45.5-73.1); Platelet Count Result 254 k/mm3 (150-375); Red Blood Count 3.44 M/mm3 (4.2-5.4); Red Cell Distribution Width 15.9 % (11.5-14.5)
[2022-12-12 10:25] LABS: Creatine Kinase 95 U/L (30-135)
--- NOTE | 2022-12-12 10:51 | PCFNICU ---
ICU Rounding Note: Pt current nutrition is Vital AF 1.2 at 60 ml/hr. Last recorded weight is 156.1 kg. Bowel Motility: No BM reported. Labs Reviewed:Mg 2.6, Na 134, BUN 24,Cr 3.0,Glu 123 Meds Noted:Fentanyl, Versed, Propofol at 23.42 ml/sv=330 kcals. Skin: WNL Additional Notes: Patient remains on mechanical vent with tube feedings of Vital AF 1.2 at 60 ml/hr and tolerating nursing. Patient also receiving an additional 618 kcals. Total Nutrition: 2202 kcals/99 gms protein/1071 ml water. Flush 30 ml q 4 hours. Agree with diet orders. Following daily in ICU rounds. Will monitor in ICU rounds and reassess every Saturday and Saturday.
[2022-12-12] MEDS: PROPOFOL IV EMULSION 100 ML 23.42 MG IV CONT ×2 (11:11→15:29)
[2022-12-12 11:41] LABS: Creatinine Urine 33.8 mg/dL
[2022-12-12 11:48] LABS: Sodium Urine Random 14 meq/L
--- NOTE | 2022-12-12 12:44 | PM.IMPN ---
Progress Note: A&P Assessment and Plan (1) Acute respiratory failure: Code(s): J96.00 - Acute respiratory failure, unspecified whether with hypoxia or hypercapnia Status: Acute Assessment and Plan: Management per hr business partner Patient possible overdose, altered mental status, shortness respirations, found unresponsive and was brought to the ED. -intubated in the ED on 12/08/2022 for airway protection -currently on CMV peep of 8, 30% FiO2, ABGs reviewed, ventilator adjusted -chest x-ray reviewed -weaning will depend on mental status improvement -patient has a history of asthma and is on home bronchodilators -continue Xopenex, Atrovent and Pulmicort (2) Pneumonia: Code(s): J18.9 - Pneumonia, unspecified organism Status: Acute Assessment and Plan: Chest x-ray shows stable opacities, be related to aspiration pneumonia as patient was found down unresponsive with sonorous respirations. -leukocytosis, chest x-ray findings, patient started azithromycin, Zosyn and vancomycin (12/09) -cultures have been obtained and negative till now -discontinue vancomycin (3) Bradycardia: Code(s): R00.1 - Bradycardia, unspecified Status: Acute Assessment and Plan: Bradycardic likely due to tizanidine overdose, sedation and vagal stimulation -blood pressures have been stable -continue supportive care -patient consist used to have episodes of bradycardia with seem to correlate with the patient either bearing down or with suctioning. Lowering of sedation also leads to episodes of bradycardia. Will try to slowly transition patient to propofol to allow better and quicker sedation vacation for exam as long as her heart rate tolerates -episodes are short-lived with spontaneous recovery -cardiology following -patient has pacer pads and atropine at bedside (4) Overdose: Code(s): T50.901A - Poisoning by unspecified drugs, medicaments and biological substances, accidental (unintentional), initial encounter Status: Acute Assessment and Plan: Likely lithium and tizanidine overdose -likely intentional as her room mate stated that she has been depressed due to her pain from fibromyalgia -initial lithium level was 1.9 (0.6-1.2) but resolved with IV fluids -lithium levels have normalized, creatinine is normal -appreciate nephrology following the patient (5) Elevated lithium level: Code(s): R79.89 - Other specified abnormal findings of blood chemistry Status: Acute Assessment and Plan: [place] levels have decreased to subtherapeutic levels -poison control was notified from the ER -12/09/2022: Poison control had called and had no new recommendations (6) Altered mental status: Code(s): R41.82 - Altered mental status, unspecified Status: Acute Assessment and Plan: Likely related to medicine overdose -currently sedated and intubated -will try to wean down sedation today (7) Hypothyroidism: Code(s): E03.9 - Hypothyroidism, unspecified Status: Acute Assessment and Plan: continue levothyroxine (8) Schizoaffective disorder: Code(s): F25.9 - Schizoaffective disorder, unspecified Status: Acute Assessment and Plan: desvenlafaxine cannot be crushed and given through the tube continue Topiramate and Latuda (9) Bipolar disorder: Code(s): F31.9 - Bipolar disorder, unspecified Status: Chronic Assessment and Plan: Continue meds as above -hold lithium and methylphenidate (10) Acute kidney injury: Code(s): N17.9 - Acute kidney failure, unspecified Status: Acute Assessment and Plan: Patient had increase in creatinine over last few days and creatinine increased to 3 today Check CK, urine sodium and creatinine Check renal ultrasound Will consult nephrology if continues to worsen Start iV fluids Vancomycin has been discontinued Subjective Date/time seen: 12/12/22 12:44 Interval histor
[2022-12-12] MEDS: PIPERACILLIN/TAZ 2.25G/NS 50ML 2.25 GM/50 ML BAG IVPB ×2 (12:56→17:30)
[2022-12-12] MEDS: CENTRAL LINE FLUSH 10 ML IV PUSH ×2 (13:48→20:13)
[2022-12-12] MEDS: FENTANYL 2,500MCG/NS250ML(*CRX 2,500 MCG/250 ML BAG IV CONT (15:37)
[2022-12-12] MEDS: PROPOFOL IV EMULSION 100 ML 28.1 MG IV CONT (19:04)
[2022-12-12] MEDS: TOPIRAMATE 100 MG TABLET PO (20:12)
[2022-12-12] MEDS: PROPOFOL IV EMULSION 100 ML 37.46 MG IV CONT (22:19)
[2022-12-13] VITALS (52 sets, daily range): BP systolic 115–144; BP diastolic 65–92; PULSE 57–130; RESP 18–39; TEMP 36.6–37.2; O2SAT 95–100
[2022-12-13] MEDS: PIPERACILLIN/TAZ 2.25G/NS 50ML 2.25 GM/50 ML BAG IVPB ×4 (00:01→17:39)
[2022-12-13] MEDS: PROPOFOL IV EMULSION 100 ML 37.46 MG IV CONT ×2 (02:48→04:57)
[2022-12-13] MEDS: IPRATROPIUM BR 0.02% INH SOLN 0.5 MG/2.5 ML VIAL INHALATION ×4 (03:03→20:12)
[2022-12-13] MEDS: LEVALBUTEROL NEB 1.25 MG/3 ML INHALATION ×4 (03:03→20:12)
[2022-12-13 05:33] LABS: Basophils Percent Auto 0.4 % (0.2-1.2); Eosinophils Absolute Auto 0.1 K/mm3 (0-0.3); Eosinophils Percent Auto 1.7 % (0-4.4); Hemoglobin 11.3 g/dL (12.0-15.0); Immature Granulocyte Absolute 0.04 K/mm3 (0.00-0.031); Immature Granulocyte Percent A 0.5 % (0-0.5); Lymphocytes Absolute Auto 1.07 K/mm3 (0.9-3.2); Lymphocytes Percent Auto 13.1 % (18.3-44.2); Mean Corpuscular HGB Conc 35.3 g/dl (32-36); Mean Corpuscular Hemoglobin 33.5 pg (26-34); Mean Platelet Volume 11.2 fl (7.4-10.4); Monocytes Absolute Auto 0.8 K/mm3 (0.1-0.6); Monocytes Percent Auto 9.6 % (2.6-8.5); Neutrophils Absolute Auto 6.1 K/mm3 (1.3-6.7); Neutrophils Percent Auto 74.7 % (45.5-73.1); Platelet Count Result 300 k/mm3 (150-375); Red Blood Count 3.37 M/mm3 (4.2-5.4); Red Cell Distribution Width 15.9 % (11.5-14.5); White Blood Count 8.2 K/mm3 (4.5-10.0)
[2022-12-13 05:38] LABS: Alveolar/Arterial O2 Gradient 63.6 mmHg; Base Excess ABG -2.4 mEq/l (+/-2.0); Carboxyhemoglobin 0.6 % THb (0-2.0); Fractional Inspired Oxygen 30 %; HCO3 ABG 23.2 mEq/l (22.0-26.0); Methemoglobin ABG 0.5 %THb (0-1.5); Oxygen Saturation ABG 97.3 % (95.0-100.0); Oxyhemoglobin 96.1 % THb (90.0-100.0); PCO2 ABG 42.8 mmHg (35.0-45.0); PO2 FiO2 Ratio Arterial Blood 3.33 %; Reduced Hemoglobin 2.8 %THb (0-5.0); Total Hemoglobin 16.2 g/dL (12.0-18.0); pH ABG 7.351 (7.350-7.450)
[2022-12-13 05:39] LABS: Device VENTILATOR; Modified Allen's Test Pass; Site Drawn LEFT RADIAL
[2022-12-13 05:40] LABS: Arterial Blood Gas PEEP 8 cmH2O; Arterial Blood Gas Tidal Volume 450 ml; Arterial Blood Gas Vent Mode CMV; Arterial Blood Gas Ventilator rate 18 /MIN
[2022-12-13] MEDS: LACTATED RINGERS 1,000 ML 100 ML IV CONT (05:40)
[2022-12-13] MEDS: CENTRAL LINE FLUSH 10 ML IV PUSH ×3 (05:41→20:18)
[2022-12-13] MEDS: LEVOTHYROXINE SODIUM 75 MCG TABLET PO (05:44)
[2022-12-13 05:56] LABS: Alanine Aminotransferase 19 U/L (6-35); Alkaline Phosphatase 59 U/L (38-126); Anion Gap 13 mmol/L (8-16); Aspartate Amino Transferase 26 U/L (14-36); Bilirubin,Total 0.2 mg/dL (0.2-1.3); Blood Urea Nitrogen 37 mg/dL (7-17); Calcium 8.3 mg/dL (8.4-10.2); Carbon Dioxide 20 mmol/L (22-30); Chloride 99 mmol/L (98-107); Estimated CRCL calculation 29 ml/min; Estimated Glomerular Filt Rate 13; Glucose 128 mg/dL (65-110); Magnesium 2.7 mg/dL (1.6-2.3); Sodium 132 mmol/L (137-145)
[2022-12-13 06:29] LABS: Triglycerides 1701 mg/dL (<150)
[2022-12-13] MEDS: BUDESONIDE RESPULE NEB 0.5 MG/2 ML AMP INHALATION ×2 (07:28→20:12)
[2022-12-13] MEDS: dexmedeTOMIDine 400 MCG/100 ML 400 MCG/100 ML BAG 27.83 MCG IV CONT (07:50)
[2022-12-13] MEDS: ENOXAPARIN 40 MG/0.4 ML SYRINGE SUB-Q (08:01)
[2022-12-13] MEDS: MINERAL OIL/WHITE PETROLATUM OINTMENT 1 APPLIC EACH EYE ×2 (08:01→20:18)
[2022-12-13] MEDS: busPIRone HCL 10 MG TABLET 20 MG PO ×2 (08:02→16:34)
[2022-12-13] MEDS: PANTOPRAZOLE SODIUM IV 40 MG VIAL IV PUSH (08:02)
[2022-12-13] MEDS: FENOFIBRATE 160 MG TABLET PO (08:20)
[2022-12-13] MEDS: INSULIN HUMAN REGULAR (*BKC) 100 UNITS in SODIUM CHLORIDE 0.9% IV 99 ML 15.9 UNITS IV CONT ×2 (08:32→14:39)
[2022-12-13 08:36] LABS: Glucose Point of Care 168 mg/dl (65-105)
[2022-12-13 08:50] LABS: Lipase 207 U/L (23-300)
[2022-12-13 09:06] LABS: Glucose Point of Care 235 mg/dl (65-105)
--- NOTE | 2022-12-13 09:08 | WPDINTPN ---
Progress Note: A&P Assessment and Plan (1) Hypertriglyceridemia: Code(s): E78.1 - Pure hyperglyceridemia Status: Acute Assessment and Plan: Severe hypertriglyceridemia with a triglyceride level of 1701 on 12/13/2022. -propofol has been discontinued -start patient on fenofibrate -also started the patient on D20 and insulin infusion -monitor triglyceride levels Q8H (2) Acute respiratory failure: Code(s): J96.00 - Acute respiratory failure, unspecified whether with hypoxia or hypercapnia Status: Acute Assessment and Plan: Patient possible overdose, altered mental status, shortness respirations, found unresponsive and was brought to the ED. -intubated in the ED on 12/08/2022 for airway protection -currently on CMV peep of 8, 30% FiO2, ABGs reviewed, ventilator adjusted -chest x-ray reviewed -weaning will depend on mental status improvement -patient has a history of asthma and is on home bronchodilators -continue Xopenex, Atrovent and Pulmicort - sedated with propofol, have asked the bedside RN to discontinue propofol due to her triglycerides being 1701. -start Precedex infusion -was patient awake and following commands will drop patient SBT (3) Pneumonia: Code(s): J18.9 - Pneumonia, unspecified organism Status: Acute Assessment and Plan: On admission Chest x-ray shows stable opacities, be related to aspiration pneumonia as patient was found down unresponsive with sonorous respirations. -leukocytosis, chest x-ray findings, -remains on azithromycin and Zosyn (12/09) -cultures have been obtained and negative till now -vancomycin has been discontinued (4) Bradycardia: Code(s): R00.1 - Bradycardia, unspecified Status: Acute Assessment and Plan: RESOLVED Bradycardic likely due to tizanidine overdose, sedation and vagal stimulation -blood pressures have been stable -continue supportive care -patient consist used to have episodes of bradycardia with seem to correlate with the patient either bearing down or with suctioning. Lowering of sedation also leads to episodes of bradycardia. -episodes are short-lived with spontaneous recovery -cardiology following -patient has pacer pads and atropine at bedside (5) Overdose: Code(s): T50.901A - Poisoning by unspecified drugs, medicaments and biological substances, accidental (unintentional), initial encounter Status: Acute Assessment and Plan: Likely lithium and tizanidine overdose -likely intentional as her room mate stated that she has been depressed due to her pain from fibromyalgia -initial lithium level was 1.9 (0.6-1.2) but resolved with IV fluids -lithium levels have normalized, creatinine is normal -appreciate nephrology following the patient (6) Elevated lithium level: Code(s): R79.89 - Other specified abnormal findings of blood chemistry Status: Acute Assessment and Plan: [place] levels have decreased to subtherapeutic levels -poison control was notified from the ER -12/09/2022: Poison control had called and had no new recommendations (7) Altered mental status: Code(s): R41.82 - Altered mental status, unspecified Status: Acute Assessment and Plan: Likely related to medicine overdose -currently sedated and intubated -currently on Precedex, to evaluate mental status (8) Hypothyroidism: Code(s): E03.9 - Hypothyroidism, unspecified Status: Acute Assessment and Plan: continue levothyroxine (9) Fibromyalgia: Code(s): M79.7 - Fibromyalgia Status: Chronic Assessment and Plan: Currently on fentanyl for pain control which I am trying to wean down (10) Schizoaffective disorder: Code(s): F25.9 - Schizoaffective disorder, unspecified Status: Acute Assessment and Plan: desvenlafaxine cannot be crushed and given through the tube, discuss with our pharmacist will place patient on extended-release venlafax
[2022-12-13 09:58] LABS: Glucose Point of Care 233 mg/dl (65-105)
[2022-12-13] MEDS: VENLAFAXINE HCL XR 75 MG CAP.ER.24H XX (09:58)
--- NOTE | 2022-12-13 11:03 | PCFNICU ---
ICU Rounding Note: Pt current nutrition is Vital AF 1.2 at 60 ml/hr. Nutrition recommendation: Banatrol Plus TF BID Last recorded weight is 159 kg. Bowel Motility:FMS Labs Reviewed:TG 1701,Cr 3.9,GFR 13, Na 132, Hgb 8.3,Hct 32.0, Glu 128, Mg 2.7 Meds Noted:Precedex, Fentanyl, Lasix, Zosyn, Lasix Skin: WNL Additional Notes: Patient remains on mechanical vent and tube feedings of Vital AF 1.2 at 60 ml/hr and tolerating per nursing. Starting Banatrol Plus TF today for stool bulking. Propofol discontinued today changed to Precedex, TG 1701. Flush 30 ml q 4 hours. Plans for breathing trial. Agree with diet orders. Will monitor in ICU rounds and reassess every Saturday and Saturday..
[2022-12-13 11:11] LABS: Glucose Point of Care 185 mg/dl (65-105)
[2022-12-13] MEDS: dexmedeTOMIDine 400 MCG/100 ML 400 MCG/100 ML BAG 59.63 MCG IV CONT ×4 (11:42→21:45)
[2022-12-13] MEDS: dexmedeTOMIDine 400 MCG/100 ML 400 MCG/100 ML BAG 55.65 MCG IV CONT ×2 (12:52→16:31)
[2022-12-13 13:03] LABS: Glucose Point of Care 90 mg/dl (65-105)
[2022-12-13 14:25] LABS: Triglycerides 107 mg/dL (<150)
[2022-12-13] MEDS: dexmedeTOMIDine 400 MCG/100 ML 400 MCG/100 ML BAG 51.68 MCG IV CONT (14:38)
[2022-12-13] MEDS: FENTANYL 2,500MCG/NS250ML(*CRX 2,500 MCG/250 ML BAG IV CONT (14:44)
[2022-12-13 15:07] LABS: Glucose Point of Care 79 mg/dl (65-105)
[2022-12-13 15:50] LABS: Triglycerides 107 mg/dL (<150)
[2022-12-13 16:08] LABS: Glucose Point of Care 100 mg/dl (65-105)
[2022-12-13] MEDS: DEXTROSE 5%/0.45% SOD CHL 1,000 ML 50 ML IV CONT (16:37)
[2022-12-13] MEDS: LORazepam INJ (*CRX) 2 MG/ML VIAL IV PUSH (18:01)
[2022-12-13 18:08] LABS: Glucose Point of Care 199 mg/dl (65-105)
[2022-12-13] MEDS: TOPIRAMATE 100 MG TABLET PO (20:19)
[2022-12-14] VITALS (51 sets, daily range): BP systolic 128–159; BP diastolic 81–94; PULSE 44–135; RESP 14–38; TEMP 36.5–37.1; O2SAT 91–100; BMI 56.8
[2022-12-14] MEDS: dexmedeTOMIDine 400 MCG/100 ML 400 MCG/100 ML BAG 59.63 MCG IV CONT ×14 (00:17→23:00)
[2022-12-14] MEDS: PIPERACILLIN/TAZ 2.25G/NS 50ML 2.25 GM/50 ML BAG IVPB ×4 (00:23→18:22)
[2022-12-14] MEDS: LEVALBUTEROL NEB 1.25 MG/3 ML INHALATION ×4 (02:20→21:20)
[2022-12-14] MEDS: IPRATROPIUM BR 0.02% INH SOLN 0.5 MG/2.5 ML VIAL INHALATION ×4 (02:20→21:20)
[2022-12-14 04:40] LABS: Glucose Point of Care 190 mg/dl (65-105)
[2022-12-14 06:00] LABS: Alveolar/Arterial O2 Gradient 88.4 mmHg; Base Excess ABG -5.9 mEq/l (+/-2.0); Carboxyhemoglobin 0.3 % THb (0-2.0); Fractional Inspired Oxygen 30 %; HCO3 ABG 19.8 mEq/l (22.0-26.0); Methemoglobin ABG 0.2 %THb (0-1.5); Oxygen Content ABG 15.7 %vol (16.0-22.0); Oxygen Saturation ABG 94.7 % (95.0-100.0); Oxyhemoglobin 93.6 % THb (90.0-100.0); PCO2 ABG 39.7 mmHg (35.0-45.0); PO2 ABG 78.9 mmHg (80.0-100.0); PO2 FiO2 Ratio Arterial Blood 2.63 %; Reduced Hemoglobin 5.9 %THb (0-5.0); Total Hemoglobin 11.9 g/dL (12.0-18.0); pH ABG 7.315 (7.350-7.450)
[2022-12-14 06:01] LABS: Arterial Blood Gas PEEP 8 cmH2O; Arterial Blood Gas Tidal Volume 450 ml; Arterial Blood Gas Vent Mode CMV; Arterial Blood Gas Ventilator rate 18 /MIN; Device VENTILATOR; Modified Allen's Test Pass; Site Drawn RIGHT RADIAL
[2022-12-14] MEDS: INSULIN ASPART (*BKC) 100 UNITS/ML SUB-Q ×2 (06:04→18:22)
[2022-12-14] MEDS: CENTRAL LINE FLUSH 10 ML IV PUSH ×3 (06:05→20:46)
[2022-12-14] MEDS: LEVOTHYROXINE SODIUM 75 MCG TABLET PO (06:05)
[2022-12-14 06:28] LABS: Basophils Percent Auto 0.3 % (0.2-1.2); Eosinophils Absolute Auto 0.1 K/mm3 (0-0.3); Eosinophils Percent Auto 1.6 % (0-4.4); Hematocrit 30.5 % (37.0-47.0); Hemoglobin 9.8 g/dL (12.0-15.0); Immature Granulocyte Absolute 0.09 K/mm3 (0.00-0.031); Lymphocytes Absolute Auto 1.22 K/mm3 (0.9-3.2); Lymphocytes Percent Auto 14.1 % (18.3-44.2); Mean Corpuscular HGB Conc 32.1 g/dl (32-36); Mean Corpuscular Hemoglobin 30.3 pg (26-34); Mean Corpuscular Volume 94.4 fl (80-100); Mean Platelet Volume 11.2 fl (7.4-10.4); Monocytes Absolute Auto 0.9 K/mm3 (0.1-0.6); Monocytes Percent Auto 10.3 % (2.6-8.5); Neutrophils Absolute Auto 6.3 K/mm3 (1.3-6.7); Neutrophils Percent Auto 72.7 % (45.5-73.1); Platelet Count Result 272 k/mm3 (150-375); Red Blood Count 3.23 M/mm3 (4.2-5.4); Red Cell Distribution Width 15.9 % (11.5-14.5); White Blood Count 8.6 K/mm3 (4.5-10.0)
[2022-12-14 06:44] LABS: Alanine Aminotransferase 18 U/L (6-35); Albumin Level 3.2 g/dL (3.5-5.1); Alkaline Phosphatase 57 U/L (38-126); Anion Gap 12 mmol/L (8-16); Aspartate Amino Transferase 18 U/L (14-36); Bilirubin,Total 0.3 mg/dL (0.2-1.3); Blood Urea Nitrogen 48 mg/dL (7-17); Calcium 8.1 mg/dL (8.4-10.2); Carbon Dioxide 20 mmol/L (22-30); Chloride 99 mmol/L (98-107); Estimated CRCL calculation 26 ml/min; Estimated Glomerular Filt Rate 11; Glucose 337 mg/dL (65-110); Magnesium 2.9 mg/dL (1.6-2.3); Phosphorus 8.8 mg/dL (2.5-4.5); Potassium 3.5 mmol/L (3.4-5.0); Sodium 131 mmol/L (137-145); Triglycerides 147 mg/dL (<150)
[2022-12-14] MEDS: BUDESONIDE RESPULE NEB 0.5 MG/2 ML AMP INHALATION ×2 (07:43→21:18)
[2022-12-14] MEDS: ENOXAPARIN 40 MG/0.4 ML SYRINGE SUB-Q (08:53)
[2022-12-14] MEDS: PANTOPRAZOLE SODIUM IV 40 MG VIAL IV PUSH (08:53)
[2022-12-14] MEDS: MINERAL OIL/WHITE PETROLATUM OINTMENT 1 APPLIC EACH EYE ×2 (08:53→20:46)
[2022-12-14] MEDS: VENLAFAXINE HCL XR 75 MG CAP.ER.24H XX (08:53)
[2022-12-14] MEDS: FENOFIBRATE 160 MG TABLET PO (08:53)
[2022-12-14] MEDS: busPIRone HCL 10 MG TABLET 20 MG PO ×2 (08:53→16:12)
--- NOTE | 2022-12-14 09:04 | WPDINTPN ---
Progress Note: A&P Assessment and Plan (1) Hypertriglyceridemia: Code(s): E78.1 - Pure hyperglyceridemia Status: Acute Assessment and Plan: Severe hypertriglyceridemia with a triglyceride level of 1701 on 12/13/2022. -propofol has been discontinued -continue fenofibrate fenofibrate - D20 and insulin infusion were discontinued -triglyceride levels have normalized (2) Acute respiratory failure: Code(s): J96.00 - Acute respiratory failure, unspecified whether with hypoxia or hypercapnia Status: Acute Assessment and Plan: Patient possible overdose, altered mental status, shortness respirations, found unresponsive and was brought to the ED. -intubated in the ED on 12/08/2022 for airway protection -currently on CMV peep of 8, 30% FiO2, ABGs reviewed, ventilator adjusted -chest x-ray reviewed -weaning will depend on mental status improvement -patient has a history of asthma and is on home bronchodilators -continue Xopenex, Atrovent and Pulmicort - sedated with propofol, have asked the bedside RN to discontinue propofol due to her triglycerides being 1701. -currently on Precedex infusion and fentanyl as patient gets agitated, tries to roll out bed -unable to place patient spontaneous breathing trials due to altered mental status (3) Pneumonia: Code(s): J18.9 - Pneumonia, unspecified organism Status: Acute Assessment and Plan: On admission Chest x-ray shows stable opacities, be related to aspiration pneumonia as patient was found down unresponsive with sonorous respirations. -leukocytosis, chest x-ray findings, -status post azithromycin -Continue and Zosyn (12/09) possible aspiration -cultures have been obtained and negative till now -vancomycin has been discontinued (4) Bradycardia: Code(s): R00.1 - Bradycardia, unspecified Status: Acute Assessment and Plan: RESOLVED Bradycardic likely due to tizanidine overdose, sedation and vagal stimulation -blood pressures have been stable -continue supportive care -patient consist used to have episodes of bradycardia with seem to correlate with the patient either bearing down or with suctioning. Lowering of sedation also leads to episodes of bradycardia. -episodes are short-lived with spontaneous recovery -cardiology following -patient has pacer pads and atropine at bedside (5) Overdose: Code(s): T50.901A - Poisoning by unspecified drugs, medicaments and biological substances, accidental (unintentional), initial encounter Status: Acute Assessment and Plan: Likely lithium and tizanidine overdose -likely intentional as her room mate stated that she has been depressed due to her pain from fibromyalgia -initial lithium level was 1.9 (0.6-1.2) but resolved with IV fluids -lithium levels have normalized, creatinine is normal -appreciate nephrology following the patient (6) Elevated lithium level: Code(s): R79.89 - Other specified abnormal findings of blood chemistry Status: Acute Assessment and Plan: [place] levels have decreased to subtherapeutic levels -poison control was notified from the ER -12/09/2022: Poison control had called and had no new recommendations (7) Hypothyroidism: Code(s): E03.9 - Hypothyroidism, unspecified Status: Acute Assessment and Plan: continue levothyroxine (8) Fibromyalgia: Code(s): M79.7 - Fibromyalgia Status: Chronic Assessment and Plan: Currently on fentanyl for pain control which I am trying to wean down (9) Schizoaffective disorder: Code(s): F25.9 - Schizoaffective disorder, unspecified Status: Acute Assessment and Plan: desvenlafaxine cannot be crushed and given through the tube, discuss with our pharmacist will place patient on extended-release venlafaxine 75 mg per tube continue Topiramate and Latuda (10) Bipolar disorder: Code(s): F31.9 - Bipolar disorder, unspecified Statu
[2022-12-14] MEDS: SODIUM CHLORIDE 0.9% IV 1,000 ML 50 ML IV CONT (09:07)
--- NOTE | 2022-12-14 09:50 | PM.PNNEP ---
Progress Note: A&P Assessment and Plan (1) Acute kidney injury: Code(s): N17.9 - Acute kidney failure, unspecified Status: Acute Assessment and Plan: normal creatinine at baseline etiology of acute insult not clear evaluation/testing to date noted: renal ultrasound okay CPK normal urine electrolytes prerenal no noted drops in blood pressure no contrast studies/dye exposure continue to make good urine output recheck UA, urine culture, and urine eosinophils follow trend of repeat labs and/UOP (2) Acute respiratory failure: Code(s): J96.00 - Acute respiratory failure, unspecified whether with hypoxia or hypercapnia Status: Acute Assessment and Plan: intubated in ER due to possible overdose, altered mental status, shallow respirations, and inability to protect airway complicated by history of asthma and possible pneumonia (see #3) on bronchodilators attempts at weaning unsuccessful due to no significant improvement in mental status continue ventilator support (3) Pneumonia: Code(s): J18.9 - Pneumonia, unspecified organism Status: Acute Assessment and Plan: CXR on admission concerning aspiration on antibiotics cultures so far negative continue supportive therapy (4) Overdose: Code(s): T50.901A - Poisoning by unspecified drugs, medicaments and biological substances, accidental (unintentional), initial encounter Status: Acute Assessment and Plan: due to lithium and tizanidine overdose presumed to be intentional given history initial lithium level was 1.9 (0.6-1.2) but resolved with IV fluids lithium levels have normalized (5) Encephalopathy: Code(s): G93.40 - Encephalopathy, unspecified Status: Acute Assessment and Plan: felt to be secondary to medicine overdose possible hypoxic/anoxic injury as well (?) head CT and TSH okay further brain imaging when able Will continue to follow. Subjective Date/time seen: 12/14/22 09:50 Interval history: Called to see patient again given new acute renal failure/acute kidney injury. Previously consulted for lithium toxicity that resolved with conservative measures. Chart reviewed since last seen -- patient currently intubated/sedated and on mechanical ventilation at this time; remains hemodynamically stable and despite renal dysfunction, continues to make good urine output without any critical electrolyte abnormalities; opens eyes but does not track and no following any commands. Exam Narrative: General: obese female intubated/sedated and on mechanical ventilation Heart: normal S1 and S2; no rub Lungs: coarse breath sounds Abdomen: soft, nontender, nondistended, positive bowel sounds Extremities: no cyanosis or clubbing; trace edema Skin: warm and dry Objective Data Vital Signs Vital Signs: Vital Signs Temp Pulse Resp BP Pulse Ox O2 Del Method FiO2 12/14/22 09:30 82 20 134/93 H 94 12/14/22 08:00 50 L 12/14/22 08:00 30 12/14/22 08:00 Mechanical Ventilation 30 12/14/22 09:00 135 H 34 H 12/14/22 08:00 97.8 F 49 L 18 131/94 H 98 12/14/22 08:15 50 L 18 12/14/22 08:00 54 L 18 12/14/22 07:45 50 L 18 12/14/22 08:17 53 L 18 12/14/22 07:44 50 L 19 12/14/22 07:44 50 L 98 Mechanical Ventilation 30 12/14/22 07:15 47 L 18 12/14/22 06:57 56 L 18 12/14/22 06:57 55 L 18 12/14/22 06:00 66 12/14/22 06:00 66 18 139/89 97 12/14/22 05:15 58 L 95 Mechanical Ventilation 30 12/14/22 05:15 132 H 38 H 12/14/22 05:10 130 H 37 H 12/14/22 05:05 122 H 38 H 12/14/22 04:55 116 H 33 H 12/14/22 05:30 112 H 12/14/22 00:30 89 20 12/14/22 04:00 98.2 F 72 14 159/85 H 100 12/14/22 04:00 30 12/14/22 04:00 Mechanical Ventilation 30 12/14/22 03
--- NOTE | 2022-12-14 09:50 | P.PNNP_ITS ---
Progress Note: A&P Assessment and Plan (1) Acute kidney injury: Code(s): N17.9 - Acute kidney failure, unspecified Status: Acute Assessment and Plan: * normal creatinine at baseline * etiology of acute insult not clear * evaluation/testing to date noted: * renal ultrasound okay * CPK normal * urine electrolytes prerenal * no noted drops in blood pressure * no contrast studies/dye exposure * continue to make good urine output * recheck UA, urine culture, and urine eosinophils * follow trend of repeat labs and/UOP (2) Acute respiratory failure: Code(s): J96.00 - Acute respiratory failure, unspecified whether with hypoxia or hypercapnia Status: Acute Assessment and Plan: * intubated in ER due to possible overdose, altered mental status, shallow respirations, and inability to protect airway * complicated by history of asthma and possible pneumonia (see #3) * on bronchodilators * attempts at weaning unsuccessful due to no significant improvement in mental status * continue ventilator support (3) Pneumonia: Code(s): J18.9 - Pneumonia, unspecified organism Status: Acute Assessment and Plan: * CXR on admission concerning aspiration * on antibiotics * cultures so far negative * continue supportive therapy (4) Overdose: Code(s): T50.901A - Poisoning by unspecified drugs, medicaments and biological substances, accidental (unintentional), initial encounter Status: Acute Assessment and Plan: * due to lithium and tizanidine overdose * presumed to be intentional given history * initial lithium level was 1.9 (0.6-1.2) but resolved with IV fluids * lithium levels have normalized (5) Encephalopathy: Code(s): G93.40 - Encephalopathy, unspecified Status: Acute Assessment and Plan: * felt to be secondary to medicine overdose * possible hypoxic/anoxic injury as well (?) * head CT and TSH okay * further brain imaging when able Will continue to follow. Subjective Date/time seen: 12/14/22 09:50 Interval history: Called to see patient again given new acute renal failure/acute kidney injury. Previously consulted for lithium toxicity that resolved with conservative measures. Chart reviewed since last seen -- patient currently intubated/sedated and on mechanical ventilation at this time; remains hemodynamically stable and despite renal dysfunction, continues to make good urine output without any critical electrolyte abnormalities; opens eyes but does not track and no following any commands. Exam Narrative: General: obese female intubated/sedated and on mechanical ventilation Heart: normal S1 and S2; no rub Lungs: coarse breath sounds Abdomen: soft, nontender, nondistended, positive bowel sounds Extremities: no cyanosis or clubbing; trace edema Skin: warm and dry Objective Data Vital Signs Vital Signs: Vital Signs Temp Pulse Resp BP Pulse Ox O2 Del Method FiO2 12/14/22 09:30 82 20 134/93 H 94 12/14/22 08:00 50 L 12/14/22 08:00 30 12/14/22 08:00 Mechanical Ventilation 30 12/14/22 09:00 135 H 34 H 12/14/22 08:00 97.8 F 49 L 18 131/94 H 98 12/14/22 08:15 50 L 18 12/14/22 08:00 54 L 18 12/14/22 07:45 50 L 18 12/14/22 08:17 53 L 18
[2022-12-14] MEDS: LORazepam INJ (*CRX) 2 MG/ML VIAL IV PUSH ×4 (09:53→21:34)
[2022-12-14 10:18] LABS: Glucose Point of Care 223 mg/dl (65-105)
[2022-12-14 11:51] LABS: Glucose Point of Care 155 mg/dl (65-105)
--- NOTE | 2022-12-14 11:56 | PCNFU ---
Nutrition Follow-Up Complete: Inadequate Oral Intake as related to mechanical ventilation as evidenced by NPO. New: Altered nutrition related lab values related to acute medical condition as evidenced by elevated PO4 Goal: Meet estimanted nutritional needs. - Goal is being met with tube feeding Pt current nutrition is Vital 1.2 @ 60 ml/h. Tolerating well. Nutrition recommendation: Switch tube feeding formula to Nepro at goal rate 45 ml/h for 1782 kcals, 80 g protein, 719 ml free water. Add Prosource TF protein modular for additional 80 kcals and 20 g protein. Total providin kcals, 100 g protein, 719 ml free water. Flushes 30 ml q 4 hours. Last recorded weight is 159.83 kg. Bowel Motility: +1 BM 12/14/22 Labs Reviewed: Hgb 9.8, Hct 30.5, Alb 3.2, Na 131, BUN 48, Cre 4.4, Glu 337, PO4 8.8 Meds Noted: Precedex, Fentanyl, Lovenox, ativan Skin: wnl Additional Notes: Remains on vent. Family meeting today to discuss goals of care. Switching to Nepro formula because of worsening renal labs. Will monitor in ICU rounds and reassess every Saturday and Saturday.
--- NOTE | 2022-12-14 12:09 | PM.IMPN ---
Progress Note: A&P Assessment and Plan (1) Acute respiratory failure: Code(s): J96.00 - Acute respiratory failure, unspecified whether with hypoxia or hypercapnia Status: Acute Assessment and Plan: Management per threader operator Patient possible overdose, altered mental status, shortness respirations, found unresponsive and was brought to the ED. -intubated in the ED on 12/08/2022 for airway protection -currently on CMV peep of 8, 30% FiO2, ABGs reviewed, ventilator adjusted -chest x-ray reviewed -weaning will depend on mental status improvement -patient has a history of asthma and is on home bronchodilators -continue Xopenex, Atrovent and Pulmicort (2) Pneumonia: Code(s): J18.9 - Pneumonia, unspecified organism Status: Acute Assessment and Plan: Chest x-ray shows stable opacities, be related to aspiration pneumonia as patient was found down unresponsive with sonorous respirations. -leukocytosis, chest x-ray findings, patient started azithromycin, Zosyn and vancomycin (12/09) -cultures have been obtained and negative till now (3) Bradycardia: Code(s): R00.1 - Bradycardia, unspecified Status: Acute Assessment and Plan: resolved. Bradycardic likely due to tizanidine overdose, sedation and vagal stimulation -cardiology following -patient has pacer pads and atropine at bedside (4) Overdose: Code(s): T50.901A - Poisoning by unspecified drugs, medicaments and biological substances, accidental (unintentional), initial encounter Status: Acute Assessment and Plan: Likely lithium and tizanidine overdose -likely intentional as her room mate stated that she has been depressed due to her pain from fibromyalgia -initial lithium level was 1.9 (0.6-1.2) but resolved with IV fluids -lithium levels have normalized, creatinine is normal -appreciate nephrology following the patient (5) Elevated lithium level: Code(s): R79.89 - Other specified abnormal findings of blood chemistry Status: Acute Assessment and Plan: [place] levels have decreased to subtherapeutic levels -poison control was notified from the ER -12/09/2022: Poison control had called and had no new recommendations (6) Altered mental status: Code(s): R41.82 - Altered mental status, unspecified Status: Acute Assessment and Plan: Management per threader operator (7) Hypothyroidism: Code(s): E03.9 - Hypothyroidism, unspecified Status: Acute Assessment and Plan: continue levothyroxine (8) Schizoaffective disorder: Code(s): F25.9 - Schizoaffective disorder, unspecified Status: Acute Assessment and Plan: desvenlafaxine cannot be crushed and given through the tube continue Topiramate and Latuda (9) Bipolar disorder: Code(s): F31.9 - Bipolar disorder, unspecified Status: Chronic Assessment and Plan: Continue meds as above -hold lithium and methylphenidate (10) Acute kidney injury: Code(s): N17.9 - Acute kidney failure, unspecified Status: Acute Assessment and Plan: Patient had increase in creatinine over last few days and creatinine increased to 3 today Check CK, urine sodium and creatinine Check renal ultrasound Will consult nephrology if continues to worsen Start iV fluids Vancomycin has been discontinued Subjective Date/time seen: 12/14/22 12:09 Interval history: sedated intubated Review of Systems Review of Systems: ROS unobtainable: Yes unobtainable due to endotracheal tube and unobtainable due to mental status Exam Narrative: General: Morbidly obese female, and no acute distress HEENT:? Pupils are equal and reactive bilaterally, sclera is clear, ETT in place Neck:? Patient has a short neck, supple, Respiratory:? Coarse breath sounds at bases L > R, no wheezing, adequate air entry Cardiac:? S1-S2 is normal, normal sinus rhythm Abdomen:? Soft, nontender, nondistended, morbidl
[2022-12-14] MEDS: FENTANYL 2,500MCG/NS250ML(*CRX 2,500 MCG/250 ML BAG 20 MCG IV CONT (14:06)
[2022-12-14 18:24] LABS: Glucose Point of Care 205 mg/dl (65-105)
[2022-12-14 18:38] LABS: Creatinine Urine 54.3 mg/dL; Total Protein Urine Random 40 mg/dL; Ur Ttl Prot Creatinine Ratio 0.74 mg/mg (0-0.20)
[2022-12-14 18:47] LABS: Appearance Urine Clear (Clear); Bacteria Urine None Seen /hpf; Bilirubin Urine Negative (Negative); Blood Urine 1+ (Negative); Color Urine Yellow (Yellow); Glucose Urine UA Negative (Negative); Ketones Urine Negative (Negative); Leukocyte Esterase Ur Trace LEU/UL (Negative); Need Manual Microscopic Reviewed; Nitrate Urine Negative (Negative); Protein Urine 1+ mg/dL (Negative); Specific Grav Ur 1.011 (1.001-1.035); Squamous Epithelial Cell Urine Few /hpf (Few); Urobilinogen Urine 0.2 mg/dL (<2.0); pH Urine 5.5 (5.0-9.0)
[2022-12-14 18:51] LABS: Add Urine Microscopic? YES
[2022-12-14 19:17] LABS: Eosinophil Urine None Seen % (None Seen); Urine Eos QC 2nd Tech Confirmed
[2022-12-14] MEDS: TOPIRAMATE 100 MG TABLET PO (20:46)
[2022-12-14] MEDS: FUROSEMIDE INJ 40 MG/4 ML VIAL 20 MG IV PUSH (22:08)
--- NOTE | 2022-12-14 22:09 | P.PNCROSS_ITS ---
Event Note Event Note Event Note: 12/14/2022 21:30 Nursing staff called me into the room the patient had become quite agitated. She had worked herself down to the bottom of the bed and after they had readjusted the patient the patient became quite tachypneic and tachycardic. And she was breathing 30-40 times a minute and is in sinus tachycardia with a rate in the 1 teens to 120. Respiratory therapy noted that the patient had new onset of pink frothy secretions as well. The patient was also did desatting to the upper 80s and lower 90s. I ordered a stat chest x-ray which was personally reviewed. The patient did have some cardiomegaly and thought there may be some pulmonary vascular congestion. Looking at the patient's records the patient in is reportedly 12 L fluid positive. I did call and discuss with the vice president of compliance the patient's condition. Exact the patient could receive a dose of IV Lasix 20 mg x 1 and given that she is still quite agitated and her degree of tachypnea and tachycardia that she would benefit from more sedation. One bolus of Precedex was ordered. Nursing staff told me as I was leaving the patient's room that the family is considering going hospice in the morning. GENERAL: Intubated, agitated, not following commands HEENT: Patient is biting at the ET tube, ET tube in expected position, slightly pink tinged secretions noted in the suction catheter CARDIOVASCULAR: Tachycardic, 2+ pulses RESPIRATORY: Coarse crackles bilaterally, marked tachypnea, equal chest ex pansion ABDOMEN: Obese, soft INTEGUMENT: Generalized pallor, normal temp, not diaphoretic NEUROLOGIC: Moving all extremities however not following commands, biting at ET tube PSYCHIATRIC: Agitated, not following commands EXTREMITIES: : Gamez catheter in place with approximately 400 mL urine output, urine is pale yellow clear 35 minute spent in critical care activities Due to a high probability of clinically significant, life threatening deterioration, the patient required my highest level of preparedness to intervene emergently and I personally spent this critical care time directly and personally managing the patient. This critical care time included obtaining a history; examining the patient; pulse oximetry; ordering and review of studies; arranging urgent treatment with development of a management plan; evaluation of patient's response to treatment; frequent reassessment; and discussions with other providers. It was exclusive of separately billable procedures and treating other patients and teaching time. Please see Assessment and Plan section and the rest of the note for further information on patient assessment and treatment.
[2022-12-15] VITALS (40 sets, daily range): BP systolic 114–172; BP diastolic 66–107; PULSE 5–143; RESP 8–52; TEMP 36.5–37.1; O2SAT 87–100
[2022-12-15] MEDS: PIPERACILLIN/TAZ 2.25G/NS 50ML 2.25 GM/50 ML BAG IVPB ×2 (00:16→05:39)
[2022-12-15 00:21] LABS: Glucose Point of Care 159 mg/dl (65-105)
[2022-12-15] MEDS: dexmedeTOMIDine 400 MCG/100 ML 400 MCG/100 ML BAG 59.63 MCG IV CONT ×7 (01:00→10:51)
[2022-12-15] MEDS: LORazepam INJ (*CRX) 2 MG/ML VIAL IV PUSH ×8 (01:33→23:37)
[2022-12-15] MEDS: MIDAZOLAM HCL (*CRX) 2 MG/2 ML VIAL IV PUSH ×2 (01:41→11:23)
[2022-12-15] MEDS: MIDAZOLAM 100MG/NS 100ML(*CRX) 100 MG/100 ML BAG IV CONT (01:50)
[2022-12-15] MEDS: LEVALBUTEROL NEB 1.25 MG/3 ML INHALATION ×2 (02:12→07:33)
[2022-12-15] MEDS: IPRATROPIUM BR 0.02% INH SOLN 0.5 MG/2.5 ML VIAL INHALATION ×2 (02:13→07:33)
[2022-12-15] MEDS: FENTANYL 2,500MCG/NS250ML(*CRX 2,500 MCG/250 ML BAG 20 MCG IV CONT (02:28)
[2022-12-15] MEDS: SODIUM CHLORIDE 0.9% IV 1,000 ML 50 ML IV CONT (04:05)
[2022-12-15] MEDS: CENTRAL LINE FLUSH 10 ML IV PUSH ×3 (05:39→20:04)
[2022-12-15] MEDS: LEVOTHYROXINE SODIUM 75 MCG TABLET PO (05:45)
[2022-12-15 05:46] LABS: Alveolar/Arterial O2 Gradient 163.8 mmHg; Base Excess ABG -4.5 mEq/l (+/-2.0); Carboxyhemoglobin 0.3 % THb (0-2.0); Fractional Inspired Oxygen 50 %; HCO3 ABG 21.1 mEq/l (22.0-26.0); Methemoglobin ABG 0.4 %THb (0-1.5); Oxygen Content ABG 18.2 %vol (16.0-22.0); Oxygen Saturation ABG 98.8 % (95.0-100.0); Oxyhemoglobin 97.4 % THb (90.0-100.0); PCO2 ABG 40.7 mmHg (35.0-45.0); PO2 ABG 146.9 mmHg (80.0-100.0); PO2 FiO2 Ratio Arterial Blood 2.94 %; Reduced Hemoglobin 1.9 %THb (0-5.0); Total Hemoglobin 13.1 g/dL (12.0-18.0); pH ABG 7.332 (7.350-7.450)
[2022-12-15 05:46] LABS: Basophils Percent Auto 0.4 % (0.2-1.2); Eosinophils Absolute Auto 0.1 K/mm3 (0-0.3); Eosinophils Percent Auto 1.2 % (0-4.4); Hematocrit 30.7 % (37.0-47.0); Lymphocytes Absolute Auto 1.06 K/mm3 (0.9-3.2); Lymphocytes Percent Auto 10.3 % (18.3-44.2); Mean Corpuscular HGB Conc 32.6 g/dl (32-36); Mean Corpuscular Hemoglobin 31.1 pg (26-34); Mean Corpuscular Volume 95.3 fl (80-100); Mean Platelet Volume 10.6 fl (7.4-10.4); Monocytes Absolute Auto 0.7 K/mm3 (0.1-0.6); Monocytes Percent Auto 6.9 % (2.6-8.5); Neutrophils Absolute Auto 8.2 K/mm3 (1.3-6.7); Neutrophils Percent Auto 80.2 % (45.5-73.1); Platelet Count Result 288 k/mm3 (150-375); Red Blood Count 3.22 M/mm3 (4.2-5.4); Red Cell Distribution Width 15.8 % (11.5-14.5); White Blood Count 10.3 K/mm3 (4.5-10.0)
[2022-12-15 05:47] LABS: Arterial Blood Gas PEEP 8 cmH2O; Arterial Blood Gas Tidal Volume 450 ml; Arterial Blood Gas Vent Mode CMV; Arterial Blood Gas Ventilator rate 18 /MIN; Device VENTILATOR; Modified Allen's Test Pass; Site Drawn RIGHT RADIAL
[2022-12-15 05:55] LABS: Alanine Aminotransferase 21 U/L (6-35); Alkaline Phosphatase 53 U/L (38-126); Anion Gap 9 mmol/L (8-16); Aspartate Amino Transferase 21 U/L (14-36); Bilirubin,Total 0.3 mg/dL (0.2-1.3); Blood Urea Nitrogen 55 mg/dL (7-17); Calcium 8.1 mg/dL (8.4-10.2); Carbon Dioxide 21 mmol/L (22-30); Chloride 100 mmol/L (98-107); Estimated CRCL calculation 28 ml/min; Estimated Glomerular Filt Rate 12; Glucose 355 mg/dL (65-110); Magnesium 2.7 mg/dL (1.6-2.3); Phosphorus 7.6 mg/dL (2.5-4.5); Potassium 3.9 mmol/L (3.4-5.0); Sodium 130 mmol/L (137-145)
[2022-12-15 06:03] LABS: Complement C3 139 mg/dL (88-165)
[2022-12-15] MEDS: BUDESONIDE RESPULE NEB 0.5 MG/2 ML AMP INHALATION (07:33)
[2022-12-15 07:35] LABS: Triglycerides 195 mg/dL (<150)
[2022-12-15] MEDS: VENLAFAXINE HCL XR 75 MG CAP.ER.24H XX (09:00)
[2022-12-15] MEDS: FENOFIBRATE 160 MG TABLET PO (09:05)
[2022-12-15] MEDS: MINERAL OIL/WHITE PETROLATUM OINTMENT 1 APPLIC EACH EYE (09:05)
[2022-12-15] MEDS: ENOXAPARIN 40 MG/0.4 ML SYRINGE SUB-Q (09:06)
[2022-12-15] MEDS: busPIRone HCL 10 MG TABLET 20 MG PO (09:06)
[2022-12-15] MEDS: PANTOPRAZOLE SODIUM IV 40 MG VIAL IV PUSH (09:07)
--- NOTE | 2022-12-15 10:59 | WPDINTPN ---
Progress Note: A&P Assessment and Plan (1) Hypertriglyceridemia: Code(s): E78.1 - Pure hyperglyceridemia Status: Acute Assessment and Plan: Severe hypertriglyceridemia with a triglyceride level of 1701 on 12/13/2022. -propofol has been discontinued -continue fenofibrate fenofibrate - D20 and insulin infusion were discontinued -triglyceride levels have normalized (2) Acute respiratory failure: Code(s): J96.00 - Acute respiratory failure, unspecified whether with hypoxia or hypercapnia Status: Acute Assessment and Plan: Patient possible overdose, altered mental status, shortness respirations, found unresponsive and was brought to the ED. -intubated in the ED on 12/08/2022 for airway protection -currently on CMV peep of 8, 30% FiO2, ABGs reviewed, ventilator adjusted -chest x-ray reviewed -weaning will depend on mental status improvement -patient has a history of asthma and is on home bronchodilators -continue Xopenex, Atrovent and Pulmicort - sedated with propofol, have asked the bedside RN to discontinue propofol due to her triglycerides being 1701. -currently on Precedex, fentanyl and Versed as patient was agitated and flailing her legs and kicking the staff unknowingly -unable to place patient spontaneous breathing trials due to altered mental status (3) Pneumonia: Code(s): J18.9 - Pneumonia, unspecified organism Status: Acute Assessment and Plan: On admission Chest x-ray shows stable opacities, be related to aspiration pneumonia as patient was found down unresponsive with sonorous respirations. -leukocytosis, chest x-ray findings, -status post azithromycin -Continue and Zosyn (12/09) possible aspiration -cultures have been obtained and negative till now -vancomycin has been discontinued (4) Bradycardia: Code(s): R00.1 - Bradycardia, unspecified Status: Acute Assessment and Plan: RESOLVED Bradycardic likely due to tizanidine overdose, sedation and vagal stimulation -blood pressures have been stable -continue supportive care -patient consist used to have episodes of bradycardia with seem to correlate with the patient either bearing down or with suctioning. Lowering of sedation also leads to episodes of bradycardia. -episodes are short-lived with spontaneous recovery -cardiology following -patient has pacer pads and atropine at bedside -bradycardia resolved (5) Overdose: Code(s): T50.901A - Poisoning by unspecified drugs, medicaments and biological substances, accidental (unintentional), initial encounter Status: Acute Assessment and Plan: Likely lithium and tizanidine overdose -likely intentional as her room mate stated that she has been depressed due to her pain from fibromyalgia -initial lithium level was 1.9 (0.6-1.2) but resolved with IV fluids -lithium levels have normalized, creatinine is normal -appreciate nephrology following the patient (6) Elevated lithium level: Code(s): R79.89 - Other specified abnormal findings of blood chemistry Status: Acute Assessment and Plan: [place] levels have decreased to subtherapeutic levels -poison control was notified from the ER -12/09/2022: Poison control had called and had no new recommendations (7) Hypothyroidism: Code(s): E03.9 - Hypothyroidism, unspecified Status: Acute Assessment and Plan: continue levothyroxine (8) Fibromyalgia: Code(s): M79.7 - Fibromyalgia Status: Chronic Assessment and Plan: Currently on fentanyl for pain control which I am trying to wean down (9) Schizoaffective disorder: Code(s): F25.9 - Schizoaffective disorder, unspecified Status: Acute Assessment and Plan: desvenlafaxine cannot be crushed and given through the tube, discuss with our pharmacist will place patient on extended-release venlafaxine 75 mg per tube continue Topiramate and Latuda (10) Bipolar disorder: Code
--- NOTE | 2022-12-15 11:04 | PM.IMPN ---
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 -intubated in the ED on 12/08/2022 for airway protection -currently on CMV peep of 8, 30% FiO2, ABGs reviewed, ventilator adjusted -chest x-ray reviewed -weaning will depend on mental status improvement -patient has a history of asthma and is on home bronchodilators -continue Xopenex, Atrovent and Pulmicort (2) Pneumonia: Code(s): J18.9 - Pneumonia, unspecified organism Status: Acute Assessment and Plan: antibiotics) (3) Bradycardia: Code(s): R00.1 - Bradycardia, unspecified Status: Acute Assessment and Plan: resolved. Bradycardic likely due to tizanidine overdose, sedation and vagal stimulation -cardiology following -patient has pacer pads and atropine at bedside (4) Overdose: Code(s): T50.901A - Poisoning by unspecified drugs, medicaments and biological substances, accidental (unintentional), initial encounter Status: Acute Assessment and Plan: Likely lithium and tizanidine overdose -likely intentional as her room mate stated that she has been depressed due to her pain from fibromyalgia -initial lithium level was 1.9 (0.6-1.2) but resolved with IV fluids -lithium levels have normalized, creatinine is normal -appreciate nephrology following the patient (5) Elevated lithium level: Code(s): R79.89 - Other specified abnormal findings of blood chemistry Status: Acute Assessment and Plan: [place] levels have decreased to subtherapeutic levels -poison control was notified from the ER -12/09/2022: Poison control had called and had no new recommendations (6) Altered mental status: Code(s): R41.82 - Altered mental status, unspecified Status: Acute Assessment and Plan: 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 (7) Hypothyroidism: Code(s): E03.9 - Hypothyroidism, unspecified Status: Acute Assessment and Plan: continue levothyroxine (8) Schizoaffective disorder: Code(s): F25.9 - Schizoaffective disorder, unspecified Status: Acute Assessment and Plan: desvenlafaxine cannot be crushed and given through the tube continue Topiramate and Latuda (9) Bipolar disorder: Code(s): F31.9 - Bipolar disorder, unspecified Status: Chronic Assessment and Plan: Continue meds as above -hold lithium and methylphenidate (10) Acute kidney injury: Code(s): N17.9 - Acute kidney failure, unspecified Status: Acute Assessment and Plan: Patient had increase in creatinine over last few days and creatinine increased to 3 today Check CK, urine sodium and creatinine Check renal ultrasound Will consult nephrology if continues to worsen Start iV fluids Vancomycin has been discontinued Subjective Date/time seen: 12/15/22 11:04 Interval history: patient is sedated and intubated. Was agitated earlier this morning Review of Systems Review of Systems: ROS unobtainable: Yes unobtainable due to endotracheal tube and unobtainable due to mental status Exam Narrative: General: Morbidly obese female, and no acute distress HEENT:? Pupils are equal and reactive bilaterally, sclera is clear, ETT in place Neck:? Patient has a short neck, supple, Respiratory:? Coarse breath sounds at bases L > R, no wheezing, adequate air entry Cardiac:? S1-S2 is normal, normal sinus rhythm Abdomen:? Soft, nontender, nondistended, morbidly obese, hypoactive bowel sounds Extremities:? Bilateral lower extremity trace edema, palpable pedal pulses Neuro:? Patient is intubated, on Precedex and fentanyl infusion, opens her eyes spontaneously, but does not trac
[2022-12-15] MEDS: HALOPERIDOL LACTATE 5 MG/ML VIAL IV PUSH ×2 (11:44→16:29)
[2022-12-15] MEDS: MORPHINE SULFATE INJ (*CRX) 10 MG/ML AMP 5 MG IV PUSH (12:11)
[2022-12-15] MEDS: dexmedeTOMIDine 400 MCG/100 ML 400 MCG/100 ML BAG 39.75 MCG IV CONT (12:35)
[2022-12-15] MEDS: SCOPOLAMINE 1.5 MG PATCH TRANSDERM (14:55)
--- NOTE | 2022-12-15 15:22 | PM.EVENT ---
Event Note Event Note Event Note: Courtesy visit patient is now comfort care.
[2022-12-15] MEDS: MORPHINE SULFATE (*CRX) 2 MG/ML INJ IV PUSH ×4 (16:08→22:53)
[2022-12-15] MEDS: MORPHINE SULFATE INJ (*CRX) 50 MG in SODIUM CHLORIDE 0.9% IV 95 ML IV CONT (16:58)
[2022-12-15] MEDS: MORPHINE SULFATE (*CRX) 4 MG/ML INJ 5 MG IV PUSH (17:45)
--- NOTE | 2022-12-15 21:18 | PC.NURSE ---
Patients father (Julius Flores) is staying at [facility], he is not sure which one. Phone number [phone].
[2022-12-16] MEDS: LORazepam INJ (*CRX) 2 MG/ML VIAL IV PUSH ×2 (01:11→02:59)
[2022-12-16] MEDS: MORPHINE SULFATE (*CRX) 2 MG/ML INJ IV PUSH ×3 (01:11→03:14)
--- NOTE | 2022-12-16 02:13 | PC.NURSE ---
Pt noted to have some rhythm changes on the monitor and O2 sats dropping to 50s. Pt's father called and currently at bedside. Message left with pt's mother. Dr. Ayala called d/t pt still appearing to be uncomfortable with snoring breathing and thrashing in bed intermittently, despite morphine gtt and PRNs. Orders to change morphine gtt to dilaudid gtt received. Currently HR going from ST to SB back and forth, SpO2 43%.
[2022-12-16 02:24] VITALS: PULSE 101; RESP 22
[2022-12-16] MEDS: HYDROmorphone HCL/PF (*CRX) 50 MG in SODIUM CHLORIDE 0.9% IV 95 ML IV CONT (02:24)
--- NOTE | 2022-12-16 02:26 | PC.NURSE ---
Hydromorphone drip initiated for comfort measures. Morphine drip discontinued.
--- NOTE | 2022-12-16 05:21 | PC.NURSE ---
Patient TOD [id number]. Called Rn New Graduate Александр Toscano and this is a coroners case. Complete chart printed out for Александр on arrival to floor. Admitting blood samples discarded, he states he will not need blood from lab. Александр was given the two medication bottles that came in with patient: desvenlafax succ ER 100mg, and latuda 80mg. Phone numbers for both parents and also roommate provided to chemical treatment plant technician. Александр states it is OK to release patient to the home and to call [facility].
--- NOTE | 2022-12-16 05:45 | PC.NURSE ---
Spoke with Jackelin from [facility]. She is aware that is a coroners case. Waiting to hear if patient is a candidate for donation before calling home.
--- NOTE | 2022-12-16 05:58 | PC.NURSE ---
Received word from [facility] that patient is not a candidate for donation.
--- NOTE | 2022-12-16 06:06 | PC.NURSE ---
While speaking with Jay Jay, who is taking calls for [facility] home, Hayde [place] calls to make me aware taht door to [facility] was left open and is warm. Discussed situation with Jay Jay who stated he would be here in less than an hour and we could leave her OUTSIDE the cooler in the morgue.
[2022-12-19 22:27] LABS: Albumin 2.4 g/dL (3.8-4.8); Alpha 1 Globulin 0.5 g/dL (0.2-0.3); Beta 1 Globulin 0.4 g/dL (0.4-0.6); Gamma Globulin 0.4 g/dL (0.8-1.7); Protein, Total 4.9 g/dL (6.1-8.1)
[2022-12-19 23:30] LABS: Creatinine, Random Urine 55 mg/dL (20-275); Total Protein/Creatinine Ratio 582 mg/g creat (24-184)
[2022-12-20 17:28] LABS: Complement Total CH50 >60 U/mL (31-60)
--- NOTE | 2023-01-09 10:57 | PM.DDS ---
Discharge Summary Date and Time Date of : 12/16/22 Time of : 03:58 Provider Pronounced By: Viviana Begum RN and Meseret Malik RN Probable Cause of Probable Cause of : Multiorgan failure Summary Hospital Course: Assessment and Plan (1) Hypertriglyceridemia: ?Code(s): E78.1 - Pure hyperglyceridemia ?Status:?Acute ?Assessment and Plan: Severe hypertriglyceridemia with a triglyceride level of 1701 on 12/13/2022. -propofol has been discontinued -continue fenofibrate fenofibrate - D20 and insulin infusion were discontinued -triglyceride levels have normalized (2) Acute respiratory failure: ?Code(s): J96.00 - Acute respiratory failure, unspecified whether with hypoxia or hypercapnia ?Status:?Acute ?Assessment and Plan: Patient possible overdose, altered mental status, shortness respirations, found unresponsive and was brought to the ED. -intubated in the ED on 12/08/2022 for airway protection -currently on CMV peep of 8, 30% FiO2, ABGs reviewed, ventilator adjusted -chest x-ray reviewed -weaning will depend on mental status improvement ?-patient has a history of asthma and is on home bronchodilators -continue Xopenex, Atrovent and Pulmicort - sedated with propofol, have asked the bedside RN to discontinue propofol due to her triglycerides being 1701. -currently on Precedex, fentanyl and Versed as patient was agitated and flailing her legs and kicking the staff unknowingly -unable to place patient spontaneous breathing trials due to altered mental status (3) Pneumonia: ?Code(s): J18.9 - Pneumonia, unspecified organism ?Status:?Acute ?Assessment and Plan: On admission Chest x-ray shows stable opacities, be related to aspiration pneumonia as patient was found down unresponsive with sonorous respirations. -leukocytosis, chest x-ray findings, -status post azithromycin -Continue and Zosyn (12/09) possible aspiration -cultures have been obtained and negative till now -vancomycin has been discontinued (4) Bradycardia: ?Code(s): R00.1 - Bradycardia, unspecified ?Status:?Acute ?Assessment and Plan: RESOLVED Bradycardic likely due to tizanidine overdose, sedation and vagal stimulation -blood pressures have been stable -continue supportive care -patient consist used to have episodes of bradycardia with seem to correlate with the patient either bearing down or with suctioning.? Lowering of sedation also leads to episodes of bradycardia.? -episodes are short-lived with spontaneous recovery -cardiology following -patient has pacer pads and atropine at bedside -bradycardia resolved (5) Overdose: ?Code(s): T50.901A - Poisoning by unspecified drugs, medicaments and biological substances, accidental (unintentional), initial encounter ?Status:?Acute ?Assessment and Plan: Likely lithium and tizanidine overdose -likely intentional as her room mate stated that she has been depressed due to her pain from fibromyalgia -initial lithium level was 1.9 (0.6-1.2) but resolved with IV fluids -lithium levels have normalized, creatinine is normal -appreciate nephrology following the patient (6) Elevated lithium level: ?Code(s): R79.89 - Other specified abnormal findings of blood chemistry ?Status:?Acute ?Assessment and Plan: [place] levels have decreased to subtherapeutic levels -poison control was notified from the ER -12/09/2022:? Poison control had called and had no new recommendations (7) Hypothyroidism: ?Code(s): E03.9 - Hypothyroidism, unspecified ?Status:?Acute ?Assessment and Plan: ?continue levothyroxine (8) Fibromyalgia: ?Code(s): M79.7 - Fibromyalgia ?Status:?Chronic ?Assessment and Plan: Currently on fentanyl for pain control which I am trying to wean down (9) Schizoaffective disorder: ?Code(s): F25.9 - Schizoaffective disorder, unspecified ?Status:?Acute ?Assessment and Plan: desven
== END 2022-12-16 03:58 | disposition expired | DRG 917 ==
LOC: ANHED 11:00 → ANHICU 11:54
PROVIDERS: Internal Medicine; Internal Medicine Nephrology; Admitting Provider Student in an Organized Health Care Education/Training Program; Emergency Provider Emergency Medicine; Visit Provider Hospitalist
DX: T42.8X2A Poisoning by antiparkinsonism drugs and other central muscle-tone depressants, intentional self-harm, initial encounter (principal); G92.8 Other toxic encephalopathy; J96.00 Acute respiratory failure, unspecified whether with hypoxia or hypercapnia; J69.0 Pneumonitis due to inhalation of food and vomit; Q79.60 Ehlers-Danlos syndrome, unspecified; Z68.43 Body mass index [BMI] 50.0-59.9, adult; N17.9 Acute kidney failure, unspecified; T43.592A Poisoning by other antipsychotics and neuroleptics, intentional self-harm, initial encounter; E03.9 Hypothyroidism, unspecified; E78.1 Pure hyperglyceridemia; E66.01 Morbid (severe) obesity due to excess calories; F32.A Depression, unspecified; F12.90 Cannabis use, unspecified, uncomplicated; F90.9 Attention-deficit hyperactivity disorder, unspecified type; F25.9 Schizoaffective disorder, unspecified; F41.9 Anxiety disorder, unspecified; F17.290 Nicotine dependence, other tobacco product, uncomplicated; G89.4 Chronic pain syndrome; I51.7 Cardiomegaly; J45.909 Unspecified asthma, uncomplicated; M79.7 Fibromyalgia; Z91.51 Personal history of suicidal behavior
CPT/HCPCS: 36415; 36569; 36600; 70450; 71045; 76775; 80048; 80053; 80076; 80178; 80202; 80307; 81001; 81003; 81025; 81050; 82375; 82550; 82570; 82805; 82948; 83050; 83605; 83690; 83735; 84100; 84155; 84156; 84165; 84166; 84300; 84443; 84478; 85025; 85055; 85610; 85730; 85999; 86140; 86160; 86162; 87040; 87070; 87077; 87081; 87086; 87205; 93005; 94002; 94003; 94640; 96361; 96375; 99285; A9270; C1751; C9113; J0456; J0461; J0696; J1170; J1630; J1650; J1815; J1940; J2060; J2250; J2270; J2543; J2704; J3010; J3370; J3480; J7030; J7120